=== PATIENT | female | born 1970 | race Caucasian/White ===

== ENCOUNTER → 2019-09-08 15:41 | Outpatient (BNVA) | payer OTHER, SELFPAY | PROVIDERS: Family Provider Nurse Practitioner Family; PCP Nurse Practitioner Family; Visit Provider Nurse Practitioner Family | DX: N30.01 Acute cystitis with hematuria (principal); R35.0 Frequency of micturition | CPT/HCPCS: 80053; 81000 ==

== ENCOUNTER → 2019-09-20 15:10 | Outpatient (BNVA) | payer OTHER, SELFPAY | PROVIDERS: Family Provider Nurse Practitioner Family; PCP Nurse Practitioner Family; Visit Provider Nurse Practitioner Family | DX: L03.211 Cellulitis of face (principal); L03.90 Cellulitis, unspecified | CPT/HCPCS: 84450; 87070 ==

== ENCOUNTER → 2020-03-01 08:18 | Outpatient (BNVA) | payer OTHER, SELFPAY | PROVIDERS: Family Provider Nurse Practitioner Family; PCP Nurse Practitioner Family; Visit Provider Nurse Practitioner Family | DX: R30.0 Dysuria (principal); R39.9 Unspecified symptoms and signs involving the genitourinary system | CPT/HCPCS: 81000 ==

== ENCOUNTER → 2020-08-15 16:46 | Outpatient (BNVA) | payer OTHER, SELFPAY | PROVIDERS: Family Provider Nurse Practitioner Family; PCP Nurse Practitioner Family; Visit Provider Nurse Practitioner Family | DX: R39.9 Unspecified symptoms and signs involving the genitourinary system (principal) | CPT/HCPCS: 81000; 87086 ==

== ENCOUNTER → 2021-02-27 13:23 | Outpatient (BNVA) | payer OTHER, SELFPAY | PROVIDERS: Family Provider Nurse Practitioner Family; PCP Nurse Practitioner Family; Visit Provider Nurse Practitioner Family | DX: R39.9 Unspecified symptoms and signs involving the genitourinary system (principal) | CPT/HCPCS: 81000 ==

== ENCOUNTER → 2021-06-24 08:03 | Outpatient (BNVA) | payer OTHER, SELFPAY | PROVIDERS: Family Provider Nurse Practitioner Family; PCP Nurse Practitioner Family; Visit Provider Nurse Practitioner Family | DX: R53.83 Other fatigue (principal); I10 Essential (primary) hypertension | CPT/HCPCS: 80053; 80061; 84443 ==

== ENCOUNTER 2021-08-23 06:44 | Outpatient (CLI) | payer OTHER, SELFPAY ==
--- NOTE | 2021-08-23 07:00 | US_ITS ---
WS: [id number] RENAL ULTRASOUND HISTORY: I10 - Essential (primary) hypertension COMPARISON: None available. TECHNIQUE: 2-D and color Doppler imaging of the kidney submitted. Right kidney: 12.5 cm x 6.0 cm x 5.9 cm. Moderate renal dilatation of proximal ureteral dilatation. There is calyceal dilatation and very mild diffuse cortical thinning. No mass. Left kidney: 10.0 cm x 5.4 cm x 4.7 cm. Normal echogenicity with no hydronephrosis or mass. Aorta: Normal. Urinary Bladder: Nondistended urinary bladder. There is wall thickening which could be due to underdi stention. US/US renal BI* [id number] IMPRESSION: 1. Moderate RIGHT hydronephrosis and proximal hydroureter. Site of the obstruc tion is not evident by ultrasound. Distal obstructing ureteral stone, stricture or neoplasm evaluation is recommended. If patient is having pain recommend pranay al stone CT protocol. If this is painless follow-up CT urogram is recommended. 2. Normal LEFT kidney.
== END 2021-08-23 06:45 | disposition home or self-care (01) ==
LOC: RAD 06:45
PROVIDERS: PCP Nurse Practitioner Family; Visit Provider Nurse Practitioner Family
DX: I10 Essential (primary) hypertension (principal); N13.2 Hydronephrosis with renal and ureteral calculous obstruction
CPT/HCPCS: 76770

== ENCOUNTER 2021-09-19 06:00 | Outpatient (CLI) | payer OTHER, SELFPAY | END 2021-09-19 06:01 | disposition home or self-care (01) | LOC: LAB 02-03 19:11 | PROVIDERS: PCP Nurse Practitioner Family; Visit Provider Nurse Practitioner Family | DX: N13.30 Unspecified hydronephrosis (principal); N39.0 Urinary tract infection, site not specified | CPT/HCPCS: 81003; 87086 ==

== ENCOUNTER 2021-09-19 06:51 | Outpatient (CLI) | payer OTHER, SELFPAY ==
--- NOTE | 2021-09-19 07:00 | XR_ITS ---
WS: [id number] Exam: XR KUB [id number] Date/Time of Exam: 09/19/2021 6:58 AM Reason For Exam: HYDRONEPHROSIS Comparison 01/17/2008. No bowel obstruction or free air. No calcifications seen in the region of the kidneys. Nonspecific bi lateral pelvic calcifications. Bony structures are intact. No sign of organ enlargement. XR/XR KUB [id number] IMPRESSION: 1. No acute abdominal finding.
--- NOTE | 2021-09-19 16:00 | CT_ITS ---
WS: [id number] CT ABDOMEN AND PELVIS NONCONTRAST HISTORY: HYDRONEPHROSIS TECHNIQUE: Imaging performed through the abdomen and pelvis. Coronal and sagittal reformats are submi tted. All CT scans at [facility] use at least one of these dose optimization techniques: auto mated exposure control; mA and/or kV adjustment per patient size (includes targeted exams where dose is matched to clinical indication); or iterative reconstruction. DLP: 1079.25 mGy.cm COMPARISON: None available. Lower thorax: Lung bases and diaphragms are not included. Liver: Mildly heterogeneous enlarged liver incompletely imaged. No bile duct dilatation. No mass is e vident. Gallbladder: Contracted, probably due to a nonfasting state. Pancreas: Normal size and attenuation. Normal pancreatic duct. No pancreatitis or mass. Spleen: Incompletely included. Adrenal glands: Normal. No mass. Right kidney: Mildly enlarged edematous kidney. Moderate hydronephrosis and hydroureter. Hydroureter is secondary to a 5 mm calcification at the UV junction. No additional calcifications. Left kidney: Normal size kidney with no mass or hydronephrosis. Aorta: Atherosclerosis aorta. No aneurysm. No free fluid, intraperitoneal air or significant lymphadenopathy. GI tract: Normal appendix. No small bowel obstruction. Numerous diverticula in the sigmoid colon. No evidence for acute diverticulitis. Abdominal wall: Negative. No hernia. Pelvis: Well-distended urinary bladder. Enlarged uterus with calcifications consistent with a fibroid uterus. Osseous structures: Unremarkable. CT/CT abdomen pelvis wo con [id number] IMPRESSION: 1. Moderate RIGHT hydroureteronephrosis secondary to a 5 mm UP junction calcif ication. 2. Comment mildly contracted gallbladder due to nonfasting state. 3. Enlarged lobulated uterus with calcifications. Consistent with a fibroid ut erus. 4. Normal appendix.
== END 2021-09-19 06:52 | disposition home or self-care (01) ==
PROVIDERS: PCP Nurse Practitioner Family; Visit Provider Urology
DX: N13.30 Unspecified hydronephrosis (principal); N85.2 Hypertrophy of uterus
CPT/HCPCS: 74018; 74176

== ENCOUNTER 2021-10-03 11:33 | Outpatient (CLI) | payer OTHER, SELFPAY ==
--- NOTE | 2021-10-03 12:00 | XRR_ITS ---
PROCEDURE INFORMATION: Exam: XR Abdomen Exam date and time: 10/03/2021 11:51 AM Age: 50 years old Clinical indication: Condition or disease; Kidney or ureter condition; Other: Urolithiasis; Prior surgery; Surgery type: Tubal; Additional info: Urolithiasis, oze @ [facility] on 10/03/21 @ 12. Appt to follow TECHNIQUE: Imaging protocol: XR of the abdomen. Views: Frontal supine view of the abdomen. 1 View. COMPARISON: CT abdomen pelvis con [id number] 09/19/2021 2:36 PM FINDINGS: Gastrointestinal tract: Normal. No bowel dilation. Bones/joints: Unremarkable. XR/XR KUB [id number] IMPRESSION: No acute findings.
== END 2021-10-03 11:34 | disposition home or self-care (01) ==
LOC: RAD 11:34
PROVIDERS: PCP Nurse Practitioner Family; Visit Provider Urology
DX: N20.9 Urinary calculus, unspecified (principal)
CPT/HCPCS: 74018; 81003

== ENCOUNTER 2021-10-09 07:53 | Day surgery (SDC) | payer OTHER, SELFPAY ==
[2021-10-08 10:19] VITALS: BMI 28.8
[2021-10-09] VITALS (9 sets, daily range): BP systolic 115–161; BP diastolic 76–100; PULSE 57–76; RESP 14–18; TEMP 36.1–37; O2SAT 96–99
--- NOTE | 2021-10-09 | SCC_ITS ---
Procedure done: 1. Cystoscopy, RIGHT, retrograde 2. RIGHT ureteroscopy, ureteral biopsy, stent 63.7 seconds of fluoroscopic guidance, for a cumulative dose of 15.95 mGy, was provided to Dr. Luna by the radiology department. C-arm images of the abdomen were saved for the patient's permanent record. [facility]
--- NOTE | 2021-10-09 06:36 | P.HPUD_ITS ---
Surgery/Procedure H&P Update DATE OF PROCEDURE: October 09, 2021 DATE H&P PERFORMED: 10/03/21 H&P UPDATE INFORMATION: I have reviewed H&P completed within last 30 days, I have examined patient prior to procedure, No changes to prior documentation and H&P is in [facility] [place] indicated CHANGES TO PREVIOUS DOCUMENTATION: Has not passed the stone. Still having symptoms. Not as severe thankfully. Proceed as scheduled PLANNED PROCEDURE: Operation Date: 10/09/21 09:30 Proposed Procedures p CYSTOSCOPY RIGHT RETROGRADE URETEROSCOPY LASER STENT 71197 MODIFIER 26 65734,N13.30,N20.9(Not Applicable) - Rodrick Luna MD s Retrograde Pyelogram(Right) - MD lamonte Couch Ureteroscopy(Not Applicable) - Rodrick Luna MD s Laser Lithotripsy(Right) - MD lamonte Couch Ureteral Stent Placement(Right) - Rodrick Luna MD
--- NOTE | 2021-10-09 08:03 | SC_ITS ---
WS: [id number] C-arm fluoroscopy for right ureteral stent placement Clinical Data: Right ureteral calculus Comparison: None. Findings: Dr. Luna placed a right ureteral stent. SC/C-arm FL for Urology Impression: Right ureteral stent.
[2021-10-09] MEDS: sodium chloride 0.9% 1,000 ML 30 ML IV (08:48)
--- NOTE | 2021-10-09 08:53 | ANES.PREANE2 ---
Pre-Anesthetic Assessment Height/Weight: Height 1.63 m Weight 76.204 kg Temp Pulse Resp BP Pulse Ox 98.6 F 73 16 161/100 99 10/09/21 08:09 10/09/21 08:09 10/09/21 08:09 10/09/21 08:09 10/09/21 08:09 Preop Diagnosis: Refractory right distal ureteral stone Operation Date: 10/09/21 09:30 Proposed Procedures p CYSTOSCOPY RIGHT RETROGRADE URETEROSCOPY LASER STENT 04108 MODIFIER 26 84836,N13.30,N20.9(Not Applicable) - Rodrick Luna MD s Retrograde Pyelogram(Right) - MD lamonte Couch Ureteroscopy(Not Applicable) - Rodrick Luna MD s Laser Lithotripsy(Right) - MD lamonte Couch Ureteral Stent Placement(Right) - Rodrick Luna MD Familial anesthetic complications: None Was Beta Tania taken within 24 hours: Yes Was Clonidine taken within 24 hours: N/A Last intake: Intake Last Liquid Date 10/08/21 Last Liquid Time 19:00 Last Solid Date 10/08/21 Last Solid Time 19:00 Social No alcohol and No tobacco Exam alert, oriented x 3, clear to auscultation bilaterally and regular rate & rhythm Airway Submandibular: within normal limits Cervical ROM: within normal limits Mallampati: Class II Dentition: full CV/HEM Hypertension Anesthetic Plan ASA status: 2 Anesthesia: General Medications/Allergies Home Medications Medication Instructions Recorded Confirmed Last Taken Type multivitamin 1 tab PO DAILY 10/17/20 10/09/21 10/07/21 History metoprolol succinate 25 mg 25 mg PO DAILY #30 tab 08/30/21 10/09/21 10/08/21 20:00 Rx tablet,extended release 24 hr alfuzosin 10 mg tablet,extended 10 mg PO DAILY #30 tab 09/19/21 10/09/21 10/07/21 Rx release 24 hr hydrocodone 5 mg-acetaminophen 325 1 tab PO Q6H PRN 3 Days #12 tab 09/19/21 10/08/21 Unknown Rx mg tablet ondansetron HCl 4 mg tablet 4 mg PO Q6H PRN #12 tab 09/19/21 10/09/21 Unknown Rx Allergies Allergy/AdvReac Type Severity Reaction Status Date / Time levofloxacin [From Levaquin] Allergy Unknown Verified 10/08/21 10:17 Sulfa (Sulfonamide Allergy Unknown Verified 10/08/21 10:17 Antibiotics) Current Medications Generic Name Dose Route Start Last Admin Trade Name Denzel PRN Reason Stop Dose Admin Sodium Chloride 1,000 mls @ 30 mls/hr 10/09/21 08:15 10/09/21 08:48 Sodium Chloride 0.9% IV 10/10/21 08:14 30 mls/hr .Q24H JEN Administration PFSH Anesthesia Medical History Hx of recurrent urinary tract infection Recurrent UTI Urolithiasis Family History Mother Healthy adult Father , AT 68 Kidney failure Social History Smoking and tobacco status: never smoked Alcohol intake: never Marital status: Current occupational status: employed History of recent travel: No Data Anesthesia Cardiac Studies: No Data to Display
--- NOTE | 2021-10-09 09:42 | P.OP_ITS ---
Operative Report Date of procedure: October 09, 2021 Pre-op diagnosis: Refractory right distal ureteral stone Post-op diagnosis: Refractory right distal ureteral stone Right ureteral soft tissue mass Likely impacted ureteral stone. Procedure done: 1. Cystoscopy, RIGHT, retrograde 2. RIGHT ureteroscopy, ureteral biopsy, stent Specimens removed/disposition: ureteral biopsies Pathology: ureteral biopsies Surgeon: Jeremy Anesthesia: General Urine output: Not measured Complications: None Findings: Stone in the expected position but not accessible. Impacted and obscured by soft tissue mass felt most likely to inflammatory reaction. Couldn't rule out fibroepithelial polyp. Biopsy obtained. Could NOT achieve adequate access and visualization of the stone, safely so a stent (4.5 largest I could advance) was placed for passive dilation and obstruction relief. Plans discussed for relook in 2-3 weeks with hopes of much improved environment and safe access. Brief History: Silvina is a delightful 50-year-old white female recently diagnosed with a right distal ureteral stone with colicky type symptoms. Failed to pass the stone in a reasonable amount of time and ultimately due to persistence of symptoms she elected to proceed with surgical intervention. Her CT scan demonstrated moderate hydroureteronephrosis. Procedure: After routine preoperative evaluation examination and obtaining of informed consent she was taken to the operating suite on 10/09/2021 where general anesthesia was administered without difficulty after appropriate timeout was performed, SCDs confirmed to be functioning, preoperative antibiotics administered, beta-livia protocol confirmed. Prepped and draped in usual sterile fashion in dorsolithotomy position paying careful attention to avoiding pressure points. 21 [place] cystoscope with 30 degree lens was introduced into urethra meatus and advanced into the bladder without difficulty. The bladder was systematically examined. No stones were seen. The stone was easily identified on the head boys tennis coach image. An 8 [place] cone-tip catheter was intubated into the right ureteral orifice for right retrograde ureteropyelogram . Contrast could not be easily advanced to the level of the stone it appeared that there was a filling defect below the stone. Contrast did NOT flow proximal to the stone. Attempted passing a flexible tip guidewire was initially unsuccessful. A 7 [place] offset semirigid ureteroscope was advanced up the right ureter and indeed there was a soft tissue density that looked similar to a fibroepithelial polyp but could have been just an intense inflammatory response to the stone sitting in that spot for a long time. Thankfully a guidewire could be manipulated beyond the area with direct visualization of that area with the ureteroscope and it curled in the area of the upper pole calyx. I could not advance the scope over the wire. I could not clearly see the stone even with slight pressure placed on the stone with the tip of the scope abutting near it as visualized on fluoroscopy. The scope was removed and the wire was secured to the drapes as a safety wire. The scope was then repassed and ureteroscopic biopsy forceps were utilized to sample the soft tissue density extending distally in the ureter from the area of the stone. It extended probably about half a centimeter maybe longer. Small samples were sent for pathologic evaluation. A 6 [place] mini scope was then attempted to be passed to the stone but it was as well unsuccessful. Reattempt over the guidewire was again unsuccessful. At this point it was decided to place a stent for passive dilation and not take any chances by pushing harder. A 6 [place] open-ended ureteral catheter was then attempted to be passed over the guidewire but was unsuccessful. The cystoscope was then backloaded over the guidewire and a 4.5 [place] 28 cm double-pigtail stent was advanced over the guidewire through the cystoscope bypassing the area of narrowing. It was advanced up into the kidney without difficulty and the stent was confirmed to be draining well. The wire was removed and the procedure was completed. The exact etiology was unclear. I do think that the most likely cause of this is an intense inflammatory response to the stone having been in that position for a significant amount of time and if that is the case passive dilation with the stent possibly a slightly larger stent (if not successful obtaining direct access with a scope at reattempt) should allow the ability to visualize the stone. I do expect it is impacted. Access was not good enough this case due to the intense inflammation to attempt at laser of the mucosal membrane likely to be encompassing the stone. I discussed these findings in detail with the patient's and after anesthesia with the patient. I luis pictures and gave detailed explanations as to the difficulty of this and what we would do in the near future to try to remedy this tight area with passive dilation and hopefully which would allow muc h easier, safe access of the scope to the stone in order to perform definitive treatment. Did discuss the potential for antegrade stent placement or access if retrograde approach remains unobtainable. PLANS: 1. Anticipate discharge from outpatient surgery 2. Follow-up in 2 weeks for additional planning as noted above.
--- NOTE | 2021-10-09 11:49 | SUR.PHASEII ---
pain medication offered, patient declined.
--- NOTE | 2021-10-09 11:59 | SUR.PHASEII ---
DOCTOR BERGER IN TO TALK WITH PATIENT AND FAMILY.
[2021-10-09] MEDS: ondansetron 2 mg/ML SDV 2 mL 4 MG IVP (12:38)
[2021-10-09] MEDS: HYDROcodone-acetaminophen 5-325 mg Tablet 1 TAB PO (12:38)
--- NOTE | 2021-10-09 14:16 | ANE.PACU2 ---
Inpatient post-anesthesia follow up: Airway intact: Yes Vital signs: Temperature 98.0 F Pulse Rate 76 Respiratory Rate 14 Blood Pressure 115/76 Pulse Oximetry 97 Oxygen Delivery Me thod Room Air Oxygen Flow Rate 6 Fraction of Inspir ed Oxygen Hydration adequate: Yes Nausea and vomiting: No Pain level: 4 Mental status: Baseline
== END 2021-10-09 13:05 | disposition home or self-care (01) ==
PROVIDERS: PCP Nurse Practitioner Family; Visit Provider Urology
PROC: 0TJB8ZZ Inspection of Bladder, Via Natural or Artificial Opening Endoscopic (ICD-10-PCS; CPT 52000; principal; 2021-10-09 09:10)
PROC: (CPT 74420; 2021-10-09 09:10)
PROC: 0TJ98ZZ Inspection of Ureter, Via Natural or Artificial Opening Endoscopic (ICD-10-PCS; CPT 52351; 2021-10-09 09:10)
PROC: (CPT 50605; 2021-10-09 09:10)
DX: N20.1 Calculus of ureter (principal); I10 Essential (primary) hypertension
CPT/HCPCS: 52332; 52354; 76000; 88305; C2625; J1100; J2250; J2405; J2704; J3010; J7030

== ENCOUNTER 2021-10-25 09:17 | Outpatient (CLI) | payer OTHER, SELFPAY ==
--- NOTE | 2021-10-25 09:24 | MM_ITS ---
WS: [id number] BILATERAL SCREENING DIGITAL BREAST TOMOSYNTHESIS MAMMOGRAM WITH CAD HISTORY: SCREENING COMPARISON: None available. Bilateral CC and MLO views with tomosynthesis and synthetic mammography submitted. Computer aided det ection analyzed. Breast composition: There are scattered areas of fibroglandular density. No suspicious masses, microc alcifications or architectural distortion. Benign calcifications and a prior biopsy clip in the RIGHT breast. MM/[place] [id number] IMPRESSION: BI-RADS: 2-Benign FOLLOW UP: 1 Year Follow-up
== END 2021-10-25 09:18 | disposition home or self-care (01) ==
LOC: RAD 09:18
PROVIDERS: PCP Nurse Practitioner Family; Visit Provider Nurse Practitioner Family
DX: Z12.31 Encounter for screening mammogram for malignant neoplasm of breast (principal)
CPT/HCPCS: 77063; 77067; 81003

== ENCOUNTER 2021-10-30 07:48 | Day surgery (SDC) | payer OTHER, SELFPAY ==
[2021-10-29 15:58] VITALS: BMI 28.8
[2021-10-30] VITALS (9 sets, daily range): BP systolic 121–154; BP diastolic 69–103; PULSE 67–88; RESP 14–20; TEMP 36.2–36.8; O2SAT 92–99
--- NOTE | 2021-10-30 | SCC_ITS ---
Procedure done: 1. Cystoscopy, right retrograde ureteropyelogram 2. Right ureteroscopy, laser lithotripsy, right ureteral stent exchange 84.7 seconds of fluoroscopic guidance, for a cumulative dose of 22.83 mGy, was provided to Dr. Luna by the radiology department. C-arm images of the abdomen were saved for the patient's permanent record. [facility]
--- NOTE | 2021-10-30 06:02 | P.HPUD_ITS ---
Surgery/Procedure H&P Update DATE OF PROCEDURE: October 30, 2021 DATE H&P PERFORMED: 10/25/21 H&P UPDATE INFORMATION: I have reviewed H&P completed within last 30 days, I have examined patient prior to procedure, No changes to prior documentation and H&P is in [facility] [place] on date indicated CHANGES TO PREVIOUS DOCUMENTATION: Good review of initial findings and implications for today. Goal is to safely access stone after period of passive dilation with stent. Unfortunately 4.5 fr stent largest I could get up at 1st visit. If still not dilated enough to safely access with scope today, we agreed that replacement with largest stent able to be passed would be the next best step and provide better chance of access at reattemp. Also reviewed antegrade approaches, ESWL, open surgery as alternatives PREOP DIAGNOSIS: Refractory right distal ureteral stone PLANNED PROCEDURE: Operation Date: 10/30/21 09:25 Proposed Procedures p CYSTOSCOPY, RIGHT, URETEROSCOPY, LASER, STENT 67785,96997,N20.1(Not Applicable) - Rodrick Luna MD s Ureteroscopy(Right) - Rodrick Luna MD s Laser Lithotripsy(Right) - Rodrick Luna MD s Ureteral Stent Placement(Right) - Rodrick Luna MD
--- NOTE | 2021-10-30 07:54 | SC_ITS ---
WS: [id number] C-arm fluoroscopy for right ureteral stent placement, 10/30/2021 Clinical Data: Impacted right ureteral stone Comparison: None. Findings: Dr. Luna inserted a right ureteral stent and the proximal portion is curled in the region of the right kidney. SC/C-arm FL for Urology Impression: Right ureteral stent.
[2021-10-30] MEDS: sodium chloride 0.9% 1,000 ML 30 ML IV (08:20)
--- NOTE | 2021-10-30 09:27 | PM.OP ---
Operative Report Date of procedure: October 30, 2021 Pre-op diagnosis: Impacted right distal ureteral stone Post-op diagnosis: Impacted right distal ureteral stone Procedure done: 1. Cystoscopy, right retrograde ureteropyelogram 2. Right ureteroscopy, laser lithotripsy, right ureteral stent exchange Implants: 7 [place] by 26 cm double-pigtail stent, no string Specimens removed/disposition: Stone fragments Pathology: Stone fragment Surgeon: Jeremy Anesthesia: General Urine output: not measured Complications: None Findings: severely impacted stone completely walled off from the true lumen. It appeared that most of the stone had been removed. Could not inspect as clearly as I would like to given the degree of inflammatory changes. Will require a relook in 4 to 6 weeks in hopes of finding adequate healing in order to remove the stent. Brief History: Silvina is a very pleasant 51-year-old white female recently diagnosed with a right ureteral calculus with failed conservative management. Ultimately elected to proceed with endoscopic treatment of the stone and on 10/09/2021 and attempted ureteroscopy was made but unsuccessful and actually accessing the stone due to impaction and a soft tissue inflammatory process extending well below the stone. It was actually difficult to get a stent but a 4.5 [place] ureteral stent was placed and the goal was to treat the obstruction but also create passive dilation. Unfortunately a larger stent which would have created or desired passive dilation could not be manipulated beyond the impacted stone so 4.5 was selected. She is back now after few weeks of the stent being in place for passive dilation for second attempt at accessing the stone. I reviewed the difficult nature of the stone with the patient and her at length. Focus has been on safe approach first. That made sense to both of them. Procedure: After routine preoperative evaluation examination and obtaining of informed consent she was taken to the operating suite on 10/30/2021 where general anesthesia was administered without difficulty after appropriate timeout was performed, SCDs confirmed to be functioning, preoperative antibiotics administered, beta-livia protocol confirmed. Prepped and draped in usual sterile fashion dorsolithotomy position pain careful attention to avoiding pressure points. 21 [place] cystoscope with 30 degree lens was introduced into the urethra meatus and advanced into the bladder under videoscopy. The bladder was systematically examined without gross abnormality identified. Stent showed no significant encrustation. It was grasped on the very distal aspect with a grasping forceps and withdrawn a very short distance through the urethral meatus and a flexible tip guidewire was easily advanced up the stent into the upper pole calyx and secured to the drapes as a safety wire. The stent was removed. The offset semirigid ureteroscope was advanced up the right ureter next to the stent to the area of impaction. There is still quite a bit of inflammatory tissue distal to the impaction site. A flexible tip guidewire was advanced through the ureteroscope and gently fed into the ureter and it easily advanced beyond the impaction site up into the kidney. This wire was also used as a safety wire. The ureteroscope was then passed again and the area carefully inspected utilizing both fluoroscopic guidance as well as endoscopic visualization. There appeared to be a membranous/mucosal sheath surrounding what appeared to be pale yellow structure consistent with a stone seen fluoroscopically. A 200 ?m thulium superpulse laser fiber was utilized to incise the mucosal covering exposing the stone. It was incised enough to be able to see most of the stone. The laser fiber was then utilized to fragment the stone into multiple small pieces that were flushed free as well as secured in grasping forceps and withdrawn. I could not clearly or easily advance the ureteroscope beyond this impaction area and it was still quite inflamed. At some point I could no longer see any stone fragments on fluoroscopy. Multiple attempts of trying to pass the scope over the guidewire were still unsuccessful and at that point further attempts at passing the scope were abandoned. An open-ended ureteral catheter was advanced over the second safety wire and the wire was removed after the catheter was beyond the area of impaction. Contrast was injected showing fairly significantly dilated proximal ureter and collecting system and there was no evidence of extravasation distally. It was felt at this point that the gain from further pursuit of trying to pass the scope was outweighed by risk of trying to force it and at that point it was decided to place a stent over the second wire. A 7 [place] by 26 cm double-pigtail stent was advanced over the guidewire through the cystoscope that had been backloaded over the guidewire into appropriate position as confirmed via fluoroscopy and cystoscopy. Wire was removed. Stent was confirmed to be draining well. Multiple fragments that had been dropped into the bladder and flushed from the ureter were then flushed into the drape drainage screen and sent for pathologic evaluation. The procedure was completed. She tolerated procedure well without complications and was awakened in the operating room and returned to the recovery room in stable condition. PLANS: 1. Anticipate discharge from outpatient surgery 2. Plan on leaving the stent in at least 4 - 6 weeks before we looking to assess healing of the severely inflamed mucosa at the impaction site. 3. I did review in detail the findings with the
--- NOTE | 2021-10-30 09:28 | ANES.PREANE2 ---
Pre-Anesthetic Assessment Height/Weight: Height 1.63 m Weight 76.204 kg Temp Pulse Resp BP Pulse Ox 97.2 F L 73 18 121/103 99 10/30/21 08:07 10/30/21 08:07 10/30/21 08:07 10/30/21 08:07 10/30/21 08:07 Preop Diagnosis: Impacted right distal ureteral stone Operation Date: 10/30/21 09:25 Proposed Procedures p CYSTOSCOPY, RIGHT, URETEROSCOPY, LASER, STENT 43893,05519,N20.1(Not Applicable) - Rodrick Luna MD s Ureteroscopy(Right) - Rodrick Luna MD s Laser Lithotripsy(Right) - Rodrick Luna MD s Ureteral Stent Placement(Right) - Rodrick Luna MD Familial anesthetic complications: None Was Beta Tania taken within 24 hours: Yes Was Clonidine taken within 24 hours: N/A Last intake: Intake Last Liquid Date 10/29/21 Last Liquid Time 21:00 Last Solid Date 10/29/21 Last Solid Time 19:00 Social No alcohol and No tobacco Exam alert, oriented x 3, clear to auscultation bilaterally and regular rate & rhythm Airway Submandibular: within normal limits Cervical ROM: within normal limits Mallampati: Class II Dentition: full CV/HEM Hypertension Kidney stones Anesthetic Plan ASA status: 2 Anesthesia: General Medications/Allergies Home Medications Medication Instructions Recorded Confirmed Last Taken Type multivitamin 1 tab PO DAILY 10/17/20 10/30/21 10/27/21 History hydrocodone 5 mg-acetaminophen 325 1 tab PO Q6H PRN 3 Days #12 tab 09/19/21 10/30/21 10/23/21 Rx mg tablet ondansetron HCl 4 mg tablet 4 mg PO Q6H PRN #12 tab 09/19/21 10/30/21 Unknown Rx oxycodone-acetaminophen 5 mg-325 1 tab PO Q8H PRN 2 Days #6 tab 10/25/21 10/29/21 Unknown Rx mg tablet (Percocet) metoprolol succinate 25 mg See Rx Instructions .ROUTE 10/29/21 10/30/21 10/29/21 Rx tablet,extended release 24 hr .COMPLEX #30 tab Allergies Allergy/AdvReac Type Severity Reaction Status Date / Time levofloxacin [From Levaquin] Allergy Unknown Verified 10/30/21 08:03 Sulfa (Sulfonamide Allergy Unknown Verified 10/30/21 08:03 Antibiotics) Current Medications Generic Name Dose Route Start Last Admin Trade Name Denzel PRN Reason Stop Dose Admin Sodium Chloride 1,000 mls @ 30 mls/hr 10/30/21 08:00 10/30/21 08:20 Sodium Chloride 0.9% IV 10/31/21 07:59 30 mls/hr .Q24H JEN Administration PFSH Anesthesia Medical History Hx of recurrent urinary tract infection Recurrent UTI Urolithiasis Family History Mother Healthy adult Father , AT 68 Kidney failure Social History Smoking and tobacco status: never smoked Alcohol intake: never Marital status: Current occupational status: employed History of recent travel: No Data Anesthesia Cardiac Studies: No Data to Display
[2021-10-30] MEDS: ceFAZolin 2,000 MG in sodium chloride 0.9% (plus) 50 ML 100 MG IV (09:33)
[2021-10-30] MEDS: HYDROcodone-acetaminophen 5-325 mg Tablet 1 TAB PO (11:53)
--- NOTE | 2021-10-30 16:32 | ANE.PACU2 ---
Inpatient post-anesthesia follow up: Airway intact: Yes Vital signs: Temperature 97.4 F Pulse Rate 74 Respiratory Rate 16 Blood Pressure 126/82 Pulse Oximetry 99 Oxygen Delivery Me thod Room Air Oxygen Flow Rate 5 Fraction of Inspir ed Oxygen Hydration adequate: Yes Nausea and vomiting: No Pain level: 3 Mental status: Baseline
[2021-11-02 21:16] LABS: Stone Source RIGHT URETER
== END 2021-10-30 12:28 | disposition home or self-care (01) ==
PROVIDERS: PCP Nurse Practitioner Family; Visit Provider Urology
PROC: 0TJB8ZZ Inspection of Bladder, Via Natural or Artificial Opening Endoscopic (ICD-10-PCS; CPT 52000; principal; 2021-10-30 09:15)
PROC: 0TJ98ZZ Inspection of Ureter, Via Natural or Artificial Opening Endoscopic (ICD-10-PCS; CPT 52351; 2021-10-30 09:15)
PROC: (CPT 52356; 2021-10-30 09:15)
PROC: (CPT 50605; 2021-10-30 09:15)
DX: N20.1 Calculus of ureter (principal); I10 Essential (primary) hypertension
CPT/HCPCS: 52356; 76000; 82365; 88300; C2625; J1100; J2250; J2405; J2704; J2710; J3010; J3490; J7030

== ENCOUNTER 2021-11-21 11:21 | Outpatient (CLI) | payer OTHER, SELFPAY | END 2021-11-21 11:22 | disposition home or self-care (01) | LOC: RAD 11:24 | PROVIDERS: PCP Nurse Practitioner Family; Visit Provider Nurse Practitioner Family | DX: N39.0 Urinary tract infection, site not specified (principal); Z96.0 Presence of urogenital implants | CPT/HCPCS: 74018; 81003; 87086 ==

== ENCOUNTER 2021-11-29 07:07 | Outpatient (CLI) | payer OTHER, SELFPAY ==
--- NOTE | 2021-11-29 07:00 | XR_ITS ---
WS: [id number] KUB, AP view, 11/29/2021 Clinical Data: UROLITHIASIS Comparison: KUB, 11/21/2021. Findings: No abnormal intraabdominal masses or calcifications are seen. There is no dilatated small bowel or ev idence of obstruction. The right ureteral catheter remains in good position. There is moderate fecal material throughout the colon. XR/XR KUB [id number] Impression: Negative KUB.
== END 2021-11-29 07:08 | disposition home or self-care (01) ==
PROVIDERS: PCP Nurse Practitioner Family; Visit Provider Urology
DX: N20.9 Urinary calculus, unspecified (principal)
CPT/HCPCS: 74018

== ENCOUNTER 2021-12-04 06:08 | Day surgery (SDC) | payer OTHER, SELFPAY ==
[2021-12-03 12:54] VITALS: BMI 28.8
[2021-12-04] VITALS (8 sets, daily range): BP systolic 99–149; BP diastolic 71–97; PULSE 68–83; RESP 10–20; TEMP 36.3–36.7; O2SAT 94–100
--- NOTE | 2021-12-04 | SCC_ITS ---
Procedure done: 1. Cystoscopy, remove right ureteral stent 2. Right retrograde ureteropyelogram 3. Right ureteroscopy, laser lithotripsy, stent placement 26.0 seconds of fluoroscopic guidance, for a cumulative dose of 6.26 mGy, was provided to Dr. Luna by the radiology department. C-arm images of the pelvis were saved for the patient's permanent record. [facility]
--- NOTE | 2021-12-04 06:24 | SC_ITS ---
WS: [id number] INTRAOPERATIVE TECHNIQUE: 5 Spot fluoroscopic images for intraoperative purposes. FLUOROSCOPY TIME: 26.0 seconds CLINICAL INFORMATION: Right ureteroscopy, retrograde, stent COMPARISON: None. FINDINGS: RIGHT double-J ureteral stent exchange and replacement. SC/C-arm FL for Urology IMPRESSION: Images obtained for intraoperative purposes.
[2021-12-04] MEDS: sodium chloride 0.9% 1,000 ML 30 ML IV (06:39)
[2021-12-04] MEDS: ceFAZolin 2,000 MG in sodium chloride 0.9% (plus) 50 ML 100 MG IV (06:44)
--- NOTE | 2021-12-04 06:56 | W.PM.OPSUD ---
Surgery/Procedure H&P Update DATE OF PROCEDURE: December 04, 2021 DATE H&P PERFORMED: 11/29/21 H&P UPDATE INFORMATION: I have reviewed H&P completed within last 30 days, I have examined patient prior to procedure, No changes to prior documentation and H&P is in [facility] [place] on date indicated PREOP DIAGNOSIS: Right hydronephrosis, previously impacted right ureteral calculus, stent PLANNED PROCEDURE: Operation Date: 12/04/21 07:50 Proposed Procedures p Cystoscopy 87219/ 14115/ modifier 26/N13.30/N20.11(Right) - Rodrick Luna MD s Ureteroscopy(Right) - Rodrick Luna MD s Retrograde Pyelogram(Right) - Rodrick Luna MD s Ureteral Stent Exchange(Right) - Rodrick Luna MD
--- NOTE | 2021-12-04 07:15 | ANES.PREANE2 ---
Pre-Anesthetic Assessment Height/Weight: Height 1.63 m Weight 76.204 kg Temp Pulse Resp BP Pulse Ox O2 Del Method 97.3 F L 78 18 149/97 98 12/04/21 06:35 12/04/21 06:35 12/04/21 06:35 12/04/21 06:35 12/04/21 06:35 12/04/21 06:35 Preop Diagnosis: Right hydronephrosis, previously impacted right ureteral calculus, stent Operation Date: 12/04/21 07:50 Proposed Procedures p Cystoscopy 21711/ 97061/ modifier 26/N13.30/N20.11(Right) - Rodrick Luna MD s Ureteroscopy(Right) - Rodrick Luna MD s Retrograde Pyelogram(Right) - Rodrick Luna MD s Ureteral Stent Exchange(Right) - Rodrick Luna MD Familial anesthetic complications: None Was Beta Tania taken within 24 hours: Yes Was Clonidine taken within 24 hours: N/A Last intake: Intake Last Liquid Date 12/03/21 Last Liquid Time 19:30 Last Solid Date 12/03/21 Last Solid Time 18:30 Social No alcohol and No tobacco Exam alert, oriented x 3, clear to auscultation bilaterally and regular rate & rhythm Airway Mallampati: Class II Dentition: full Pulmonary None reported CV/HEM Hypertension None reported Hepatic None reported GI None reported Metabolic None reported Musc/skel None reported Neuropsych None reported Anesthetic Plan ASA status: 2 Anesthesia: General Risk of > 500 ml blood loss (7ml/kg in children): No Medications/Allergies Home Medications Medication Instructions Recorded Confirmed Last Taken Type multivitamin 1 tab PO DAILY 10/17/20 12/04/21 10/27/21 History hydrocodone 5 mg-acetaminophen 325 1 tab PO Q6H PRN pain 3 days #12 09/19/21 12/04/21 10/23/21 Rx mg tablet tabs ondansetron HCl 4 mg tablet 4 mg PO Q6H PRN nausea and 09/19/21 12/03/21 Unknown Rx vomiting #12 tabs oxycodone-acetaminophen 5 mg-325 1 tab PO Q8H PRN painful procedure 10/25/21 12/04/21 Unknown Rx mg tablet (Percocet) 2 days #6 tabs metoprolol succinate 25 mg See Rx Instructions .Route 10/29/21 12/04/21 10/29/21 Rx tablet,extended release 24 hr .COMPLEX #30 tabs Allergies Allergy/AdvReac Type Severity Reaction Status Date / Time levofloxacin [From Levaquin] Allergy Unknown Verified 12/04/21 06:21 Sulfa (Sulfonamide Allergy Unknown Verified 12/04/21 06:21 Antibiotics) PFSH Anesthesia Medical History Hx of recurrent urinary tract infection Recurrent UTI Urolithiasis Surgical History Status post laser lithotripsy of ureteral calculus Family History Mother Healthy adult Father , AT 68 Kidney failure Social History Smoking and tobacco status: never smoked Alcohol intake: never Marital status: Current occupational status: employed History of recent travel: No Data Anesthesia Cardiac Studies: No Data to Display
--- NOTE | 2021-12-04 07:48 | P.OP_ITS ---
Operative Report Date of procedure: December 04, 2021 Pre-op diagnosis: Right ureteral injury secondary to impacted stone, needs reassessment for possible stent removal Post-op diagnosis: Same Procedure done: 1. Cystoscopy, remove right ureteral stent 2. Right retrograde ureteropyelogram 3. Right ureteroscopy, laser lithotripsy, stent placement Implants: 7 Citizen [place] by 26 cm double-pigtail stent Specimens removed/disposition: Stone fragments Pathology: stone fragments Surgeon: Jeremy Anesthesia: General Estimated blood loss: Minimal Urine output: Not measured Complications: None Findings: Condition: Stable Disposition: PACU The ureter was well-healed but there is still a fragment of the stone embedded in the wall on the lateral aspect of the previous impaction site. I could not manipulate the stone out of the impaction area with grasping forceps and had to use laser to break it up into smaller pieces that were then withdrawn. The remainder of the ureter looked good. All fragments removed. Stent left indwelling for further healing Brief History: Silvina is a very pleasant 51-year-old white female who was discovered to have a severely impacted right distal ureteral stone recently with moderate to severe obstructive proximal changes. Initial attempt at treating the stone with endoscopy was only successful as far as placing a stent for passive dilation and drainage of the kidney. There was severe inflammatory changes identified as well as hypertrophic mucosal proliferation with obscuring of the stone in the walled off area. After a period of passive dilation a reattempt ureteroscopy was successful in accessing the stone which was found to be severely impacted but it was completely fragmented and the fragments removed. Follow-up KUB confirmed the stent in good position and no residual obvious fragments. The concern related to the condition of the ureter status post chronic impaction has led to this third procedure for reevaluation of the impaction site before removal of the stent. If found to be an adequately healed as of today stent will be replaced and consideration for relook later versus just taking the stent out if it looks like it is very close to adequate healing Procedure: After routine preoperative evaluation examination and obtaining of informed consent she was taken to the operating suite on 12/04/2021 where general anesthesia was administered without difficulty after appropriate timeout was performed, SCDs confirmed to be functioning, preoperative antibiotics administered, beta-livia protocol confirmed. Prepped and draped in the usual sterile fashion in dorsolithotomy position paying careful attention to avoiding pressure points. 21 [place] cystoscope with 30 degree lens was introduced into the urethra meatus and advanced into the bladder under videoscopy. Bladder was systematically examined. Stent was not encrusted. The distal aspect of the stent was secured in grasping forceps and withdrawn through the urethral meatus where a flexible tip guidewire was easily advanced up the stent curling in the area of the renal pelvis. The stent was then removed. Wire was secured to the drapes as a safety wire. A 7 [place] offset semirigid ureteroscope was then advanced into the bladder and up the right ureter next to the guidewire. The ureter was carefully inspected. There remained a fragment secured to the lateral aspect of the right ureteral impaction site. I could not tell initially whether this was just on the surface of the mucosa but with some probing with grasping forceps it was clear that it was still somewhat impacted. I could not freed up adequately with a grasping forceps and therefore used a 200 ?m thulium superpulse laser fiber to fragment and to complete the freeing up of these fragments from the lateral wall. These were removed with the X catch basket. Were not for that one area the ureter was very adequately healed and would not require stent but because of the work done described above it was decided to leave a stent indwelling for further healing before stent removal. Contrast was then injected from the distal ureter proximally through the ureteroscope showing no evidence of extravasation. On final passage of the scope the ureter was inspected from the UPJ all the way down to the distal aspect and no residual fragments were seen. Fragments were removed from the bladder via flushing through the cystoscope. Cystoscope was then backloaded over the guidewire and a 7 [place] by 26 cm double-pigtail stent was advanced over the guidewire through the cystoscope into appropriate position as confirmed via fluoroscopy and cystoscopy. The bladder was drained and the procedure was completed. She tolerated procedure well without complications and was awakened in the operating room and returned to the recovery room in stable condition. PLANS: 1. Anticipate discharge from outpatient surgery 2. Maintain stent for 1 week then remove in clinic.
[2021-12-04] MEDS: iohexol 300 mg/mL 50 mL Btl (OR ONLY) XX (08:36)
--- NOTE | 2021-12-04 09:12 | SUR.PHASEI ---
0904 PT TO PACU 5 SLEEPY WITH ORAL AIRWAY IN PLACE, GOOD RESP EFFORT SATS QUICKLY UP TO 100% MONITOR SR WITH NO ECTOPY, PT ID BRACELET TO LT WRIST , PT ID'D WITH 2 IDENTIFIERS, IV #20 TO RT AC PATENT TO NS 300ML UP AT KVO RATE PER GRAVITY. HOB AT 30 DEGREES.
--- NOTE | 2021-12-04 09:14 | SUR.PHASEI ---
PT AWAKES TO VOICE, ORAL AIRWAY OUT, PT WITH SCDS ON BILATERALLY AND WORKING, GOOD RESP EFFORT NOTED.
--- NOTE | 2021-12-04 09:22 | SUR.PHASEI ---
PT NOW ON RA, VSS IV PATENT. PT DENIES PAIN AND NAUSEA.
--- NOTE | 2021-12-04 09:38 | PC.NURSE ---
Attempted to set appointment up with urology. Talked to 2 different people in the clinic they both was unable to set up appointment so they took a message so that someone can get the appointment made for the patient.
--- NOTE | 2021-12-04 18:04 | ANE.PACU2 ---
Inpatient post-anesthesia follow up: Airway intact: Yes Vital signs: Temperature 98.1 F Pulse Rate 71 Respiratory Rate 18 Blood Pressure 135/74 Pulse Oximetry 100 Oxygen Delivery Me thod Room Air Oxygen Flow Rate 8 Fraction of Inspir ed Oxygen Hydration adequate: Yes Nausea and vomiting: No Pain level: 1 Mental status: Baseline
== END 2021-12-04 10:40 | disposition home or self-care (01) ==
PROVIDERS: PCP Nurse Practitioner Family; Visit Provider Urology
PROC: 0TJB8ZZ Inspection of Bladder, Via Natural or Artificial Opening Endoscopic (ICD-10-PCS; CPT 52000; principal; 2021-12-04 07:40)
PROC: 0TJ98ZZ Inspection of Ureter, Via Natural or Artificial Opening Endoscopic (ICD-10-PCS; CPT 52351; 2021-12-04 07:40)
PROC: (CPT 74420; 2021-12-04 07:40)
PROC: (CPT 52356; 2021-12-04 07:40)
PROC: (CPT 52356; 2021-12-04 07:40)
DX: N20.1 Calculus of ureter (principal)
CPT/HCPCS: 52356; 76000; 82365; 88300; A7015; C2625; J1100; J1200; J2405; J2704; J3010; J7030

== ENCOUNTER 2021-12-16 15:13 | Outpatient (CLI) | payer OTHER, SELFPAY ==
--- NOTE | 2021-12-16 15:19 | XRR_ITS ---
PROCEDURE INFORMATION: Exam: XR Abdomen Exam date and time: 12/16/2021 3:23 PM Age: 51 years old Clinical indication: Condition or disease; Kidney or ureter condition; Calculus (stone) in kidney and calculus (stone) in ureter; Prior surgery; Surgery type: Stent; Additional info: Stones, kub angeline 12/16/21 @ 3:00 pm appt to follow TECHNIQUE: Imaging protocol: Radiologic exam of the abdomen. Views: Frontal supine view of the abdomen. 1 View. COMPARISON: CR XR KUB [id number] 11/29/2021 7:13 AM FINDINGS: Tubes, catheters and devices: Right ureteral stent seen similar to prior exam. Gastrointestinal tract: Normal. No bowel dilation. Vasculature: Several punctate calcifications over the pelvis, similar to prior exam, perhaps reflecting phleboliths or uterine calcifications, residual urinary calculi are not completely excluded. Bones/joints: Unremarkable. XR/XR KUB [id number] IMPRESSION: 1. Right ureteral stent seen similar to prior exam. 2. Several punctate calcifications over the pelvis, similar to prior exam, perhaps reflecting phleboliths or uterine calcifications, residual urinary calculi are not completely excluded.
== END 2021-12-16 15:14 | disposition home or self-care (01) ==
LOC: RAD 15:15
PROVIDERS: PCP Nurse Practitioner Family; Visit Provider Urology
DX: N20.1 Calculus of ureter (principal); Z96.0 Presence of urogenital implants; R33.9 Retention of urine, unspecified
CPT/HCPCS: 74018; 81003

== ENCOUNTER → 2022-02-28 14:17 | Outpatient (BNVA) | payer OTHER, SELFPAY | PROVIDERS: PCP Nurse Practitioner Family; Visit Provider Nurse Practitioner Family | DX: R30.0 Dysuria (principal); R10.9 Unspecified abdominal pain | CPT/HCPCS: 81000 ==

== ENCOUNTER 2022-03-13 08:36 | Outpatient (CLI) | payer OTHER, SELFPAY ==
--- NOTE | 2022-03-13 09:15 | US_ITS ---
WS: [id number] RENAL ULTRASOUND HISTORY: HYDRONEPHROSIS COMPARISON: 08/23/2021 TECHNIQUE: 2-D and color Doppler imaging of the kidney submitted. Right kidney: 10.3 cm x 5.2 cm x 5.0 cm. Normal echogenicity with no hydronephrosis or mass. Hydronephrosis identified on the prior study of is no longer present. Left kidney: 9.8 cm x 4.3 cm x 4.7 cm. Normal echogenicity with no hydronephrosis or mass. Aorta: Normal. Urinary Bladder: Nondistended. US/US renal BI* [id number] IMPRESSION: Normal renal ultrasound. Interval resolution of the hydronephrosis identified on 08/23/2021.
== END 2022-03-13 08:37 | disposition home or self-care (01) ==
LOC: RAD 08:38
PROVIDERS: PCP Nurse Practitioner Family; Visit Provider Urology
DX: N13.30 Unspecified hydronephrosis (principal)
CPT/HCPCS: 76770; 81003

== ENCOUNTER 2022-06-23 06:24 | Observation (INO) | payer OTHER, SELFPAY ==
[2022-06-23 06:32] VITALS: BMI 28.3
[2022-06-23 06:37] VITALS: BP 147/84; PULSE 88; RESP 21; TEMP 37.1; O2SAT 96
--- NOTE | 2022-06-23 06:51 | W.ED.FEMALGU ---
HPI - Female Genitourinary General: Chief complaint: Urogenital-Female Stated complaint: possible kidney stones Time Seen by Provider: 06/23/22 06:48 Source: patient Mode of arrival: ambulatory History of Present Illness: 51-year-old female presents emergency room with severe right flank pain. She has a history of severe right nephrolithiasis. In August 2021 she had a relatively small stone that was lodged proximally required intervention reviewing the right urologist notes that he had a fair amount of difficulty in manipulating the stone and getting a stent past because of some stenosis at that level. She states she is having similar pain again. MD elicited complaint: flank pain Pertinent past history: other (Nephrolithiasis) Onset (ago): hour(s) Location of symptoms: flank Quality of pain: sharp Consistency: constant Associated symptoms: Deny abdominal pain, short of breath, fevers/chills, headache(s), nausea, rash, seizures, syncope, vaginal bleeding, vaginal discharge or weakness Treatment prior to arrival: none Review of Systems Const: Denies: fever(s), chills, body aches, change in appetite, fatigue or malaise ENMT: Denies: throat pain, ear or mastoid pain, nasal discharge or nasal congestion Card: Denies: syncope Resp: Denies: dyspnea, productive cough or non-productive cough GI: Denies: abdominal pain or nausea : Reports: flank pain; Denies: vaginal discharge Skin/Breast: Denies: rash or pruritus Neuro: Denies: headache(s) PFSH ED PFSH: Medical History Hx of recurrent urinary tract infection Recurrent UTI Urolithiasis Surgical History Status post laser lithotripsy of ureteral calculus Family History Mother Healthy adult Father , AT 68 Kidney failure Social History Smoking and tobacco status: never smoked Alcohol intake: never Marital status: Current occupational status: employed Physical Exam Const: COMMON NORMALS: no acute distress GENERAL APPEARANCE: cooperative and comfortable ORIENTATION/CONSCIOUSNESS: Yes awake, Yes oriented to person, Yes oriented to place and Yes oriented to time HENMT: COMMON NORMALS: normocephalic, atraumatic and hearing grossly normal bilaterally HEAD & SCALP: normocephalic and atraumatic Resp: COMMON NORMALS: normal respiratory effort, No retractions, No use of accessory muscles and clear to auscultation bilaterally AUSCULTATION: clear to auscultation bilaterally Cardio: COMMON NORMALS: regular rate, regular rhythm and No murmurs present (Cardio) RATE: regular rate RHYTHM: regular rhythm GI: COMMON NORMALS: Soft to palpation and No hepatosplenomegaly present AUSCULTATION: Yes normoactive bowel sounds PALPATION: Yes Soft to palpation, No Tenderness to palpation present (GI), No Guarding due to palpation present (GI) and Yes No hepatosplenomegaly present : BLADDER/KIDNEY EXAM: Yes CVA tenderness on the left SPECULUM EXAM - VAGINA: No vaginal bleeding OB/EXTERNAL & SPECULUM: No vaginal bleeding Back/Pelvis: GENERAL BACK: Yes CVA tenderness Extremity: COMMON NORMALS: no calf tenderness and no pedal edema OTHER: Well-demarcated Raynauds phenomenon with white blanching of the fingers to the proximal portion of the proximal phalanx and the distal half of the toes. No blanching no capillary refill no joint effusion noted at this time Neuro: SENSORIUM/ORIENTATION: Yes oriented to person, Yes oriented to place and Yes oriented to time Skin: COMMON NORMALS: no rashes or lesions noted GENERAL SKIN EXAM: no rashes or lesions noted Course Vital Signs: Vital signs: Vital Signs Temperature 98.8 F 06/23/22 06:37 Pulse Rate 88 06/23/22 06:37 Respiratory Rate 16 06/23/22 12:46 Blood Pressure 147/84 06/23/22 06:37 Pulse Oximetry 95 06/23/22 12:46 Oxygen Delivery Me thod 06/23/22 12:46 MDM - Female Medical Decision Making Initial KUB could not definitively identify stone CT shows stone 4 mm calcification in the distal ureter. Her pain is very difficult to control. After discussion with Dr. Luna and with the patient we decided to place patient on observation because of the difficulty she had with previous stones as well as difficulty encountered with the stone and achieving pain control. Additionally patient has pretty well-demarcated rainouts-like phenomenon. We will decrease her Toprol-XL to 12.5 daily and add amlodipine 5 mg daily and case management has been asked to make referral to rheumatology. This is a distinct issue from the nephrolithiasis that is precipitating her observation status Medical Records I reviewed the patient's medical records. Lab Data I reviewed the patient's lab results. 06/23/22 07:15 06/23/22 07:15 Radiology Impressions KUB X-Ray 06/23/22 08:11 Impression: Large amount of fecal material in the colon Abdomen/Pelvis CT 06/23/22 08:44 IMPRESSION: 1. Moderate RIGHT hydroureteronephrosis secondary to a 4 mm calcification in the distal ureter. Additional nonobstructing RIGHT renal calcification. 2. No appendicitis. 3. Mild atherosclerosis aorta. 4. Fibroid uterus. Laboratory Results WBC 7.0 10^3/uL (4.0-10.0) 06/23/22 07:15 RBC 5.19 10^6/uL (4.1-5.3) 06/23/22 07:15 Hgb 14.4 g/dL (11.5-15.3) 06/23/22 07:15 Hct 45.1 % (37.0-47.0) 06/23/22 07:15 MCV 86.9 fl (81-99) 06/23/22 07:15 MCH 27.7 pg (28.0-34.0) L 06/23/22 07:15 MCHC 31.9 g/dL (30.0-36.0) 06/23/22 07:15 RDW 12.6 % (12.1-15.1) 06/23/22 07:15 Plt Count 224 10^3/cmm (130-400) 06/23/22 07:15 MPV 11.1 fL (7.4-10.4) H 06/23/22 07:15 Neut % (Auto) 80.6 % 06/23/22 07:15 Lymph % (Auto) 14.5 % 06/23/22 07:15 [place] % (Auto) 3.6 % 06/23/22 07:15 Eos % (Auto) 0.7 % 06/23/22 07:15 Baso % (Auto) 0.3 % 06/23/22 07:15 Neut # (Auto) 5.67 10^3/uL (1.8-7.7) 06/23/22 07:15 Lymph # (Auto) 1.0 10^3/uL (0.8-4.8) 06/23/22 07:15 [place] # (Auto) 0.3 10^3/uL (0.2-0.9) 06/23/22 07:15 Eos # (Auto) 0.1 10^3/uL (0.0-0.8) 06/23/22 07:15 Baso # (Auto) 0.0 10^3/uL (0.0-0.1) 06/23/22 07:15 Nucleated RBC % (auto) 0 % 06/23/22 07:15 Nucleated RBCs # 0.0 /100WBC 06/23/22 07:15 Sodium 139 mmol/L (136-145) 06/23/22 07:15 Potassium 4.0 mmol/L (3.5-5.1) 06/23/22 07:15 Chloride 104 mmol/L (98-107) 06/23/22 07:15 Carbon Dioxide 23 mmol/L (22-29) 06/23/22 07:15 Anion Gap 16.0 (5-19) 06/23/22 07:15 BUN 13 mg/dL (6-20) 06/23/22 07:15 Creatinine 0.7 mg/dL (0.5-0.9) 06/23/22 07:15 GFR Calculation 88.9 mL/min (90-130) L 06/23/22 07:15 Glucose 124 mg/dL (65-115) H 06/23/22 07:15 Calculated Osmolality 290 mOsm/kg (285-295) 06/23/22 07:15 Calcium 9.1 mg/dL (8.5-10.5) 06/23/22 07:15 Urine Color Yellow (Yellow) 06/23/22 06:50 Urine Appearance Hazy (CLEAR) A 06/23/22 06:50 Urine pH 6 (5-7) 06/23/22 06:50 Ur Specific [place] 1.020 (1.005-1.030) 06/23/22 06:50 Urine Protein Neg (Negative) 06/23/22 06:50 Urine Glucose (UA) Norm (Normal) 06/23/22 06:50 Urine Ketones Negative (Negative) 06/23/22 06:50 Urine Blood 2+ (Negative) H 06/23/22 06:50 Urine Nitrate Negative (Negative) 06/23/22 06:50 Urine Bilirubin Neg (Negative) 06/23/22 06:50 Urine Urobilinogen Norm mg/dL (Negative) 06/23/22 06:50 Ur Leukocyte Esterase Negative (Negative) 06/23/22 06:50 Urine RBC 5-10 /hpf (0-2) H 06/23/22 06:50 Urine WBC None /hpf (0-5) 06/23/22 06:50 Ur Squamous Epith Cells 10-15 /hpf (0-5) H 06/23/22 06:50 Amorphous Sediment Not Reportable 06/23/22 06:50 Urine Bacteria Trace /hpf (NONE) 06/23/22 06:50 Urine Mucus 1+ /hpf 06/23/22 06:50 Discharge Plan Discharge Patient Disposition: Placed in Observation Clinical Impression: Urolithiasis, Raynaud phenomenon Condition: Stable Prescriptions: No Action multivitamin Tablet 1 tab PO DAILY magnesium 250 mg tablet 250 mg PO DAILY metoprolol succinate 25 mg tablet extended release 24 hr 25 mg PO DAILY Referrals: Rodrick Luna MD [Primary Care Provider] - Coding Level of Care Code ED Certified Orthotic Fitter for Fady Chase
[2022-06-23 07:20] VITALS: RESP 18
[2022-06-23] MEDS: ondansetron 2 mg/ML SDV 2 mL 4 MG IVP (07:20)
[2022-06-23] MEDS: morphine 4 mg/mL SDV 1 mL IVP (07:20)
[2022-06-23 07:25] LABS: Basophils % 0.3 %; Eosinophils # 0.1 10^3/uL (0.0-0.8); Eosinophils % 0.7 %; Hematocrit 45.1 % (37.0-47.0); Hemoglobin 14.4 g/dL (11.5-15.3); Lymphocytes % 14.5 %; Mean Corpuscular HGB Conc 31.9 g/dL (30.0-36.0); Mean Corpuscular Hemoglobin 27.7 pg (28.0-34.0); Mean Corpuscular Volume 86.9 fl (81-99); Mean Platelet Volume 11.1 fL (7.4-10.4); Monocytes # 0.3 10^3/uL (0.2-0.9); Monocytes % 3.6 %; Neutrophils # 5.67 10^3/uL (1.8-7.7); Neutrophils % 80.6 %; Nucleated Red Blood Cells % 0 %; Platelet Count 224 10^3/cmm (130-400); Red Blood Count 5.19 10^6/uL (4.1-5.3); Red Cell Distribution Width 12.6 % (12.1-15.1)
[2022-06-23 07:25] LABS: Add Urine Culture? Yes; Add Urine Microscopic? YES; Bacteria Urine TRACE /hpf; Bilirubin Urine Neg (Negative); Blood Urine 2+ (Negative); Glucose Urine UA Norm (Normal); Ketones Urine Negative (Negative); Leukocyte Esterase Urine Negative (Negative); Mucus Urine 1+ /hpf; Nitrate Urine Negative (Negative); Protein Urine Neg (Negative); Urine Appearance Hazy (CLEAR); Urine Color Yellow (Yellow); Urobilinogen Urine Norm (Negative); pH Urine 6 (5-7)
[2022-06-23 07:40] LABS: Blood Urea Nitrogen 13 mg/dL (6-20); Calcium 9.1 mg/dL (8.5-10.5); Carbon Dioxide 23 mmol/L (22-29); Chloride 104 mmol/L (98-107); Glomerular Filtration Rate 88.9 mL/min (90-130); Glucose 124 mg/dL (65-115); Osmolality Calculated 290 mOsm/kg (285-295); Sodium 139 mmol/L (136-145)
--- NOTE | 2022-06-23 08:11 | XR_ITS ---
WS: [id number] KUB, AP portable supine, 06/23/2022 Clinical Data: renal stone Comparison: KUB, 12/16/2021 Findings: No abnormal intraabdominal masses or calcifications are seen. There is no dilatated small bowel or ev idence of obstruction. There is a large amount of fecal material in the colon obscuring detail over both kidneys. There is a slight levoscoliosis. XR/XR KUB portable [id number] Impression: Large amount of fecal material in the colon
--- NOTE | 2022-06-23 08:44 | CT_ITS ---
WS: [id number] CT ABDOMEN AND PELVIS NONCONTRAST HISTORY: flank pain, RIGHT lower quadrant and right-sided back pain. TECHNIQUE: Imaging performed through the abdomen and pelvis. Coronal and sagittal reformats are submi tted. All CT scans at [facility] use at least one of these dose optimization techniques: auto mated exposure control; mA and/or kV adjustment per patient size (includes targeted exams where dose is matched to clinical indication); or iterative reconstruction. DLP: 690.90 mGy.cm COMPARISON: 09/19/2021 Lower thorax: Mildly hyperexpanded lung bases a few very minimal scattered opacifications which may b e part be related to atelectasis and dependent change. Heart size is normal. Small hiatal hernia. Liver: Normal size liver. No mass or bile duct dilatation. Gallbladder: Normal gallbladder. Pancreas: Normal size and attenuation. Normal pancreatic duct. No pancreatitis or mass. Spleen: Normal. Adrenal glands: Normal. No mass. Right kidney: Enlarged mildly edematous RIGHT kidney. There is only very minimal perinephric strandin g. RIGHT renal pelvis and ureter are dilated to the distal ureter. There is a 4 mm calcification in t he distal ureter. There is an additional nonobstructing calcification in the lower pole measuring 4 m m. Left kidney: Normal size kidney with no mass or hydronephrosis. Aorta: Mild atherosclerosis abdominal aorta with no aneurysm. No free fluid, intraperitoneal air or significant lymphadenopathy. GI tract: Stomach is moderately well distended with fluid. No small bowel obstruction or wall thicken ing identified. No appendicitis. Diffuse mild constipation. Sigmoid diverticulosis without acute dive rticulitis. Abdominal wall: Small umbilical hernia contains fat only. Pelvis: No free fluid. Uterus is mildly lobulated and enlarged with numerous calcified masses consist ent with a fibroid uterus. Osseous structures: Unremarkable. CT/CT kidney stone [id number] IMPRESSION: 1. Moderate RIGHT hydroureteronephrosis secondary to a 4 mm calcification in t he distal ureter. Additional nonobstructing RIGHT renal calcification. 2. No appendicitis. 3. Mild atherosclerosis aorta. 4. Fibroid uterus.
[2022-06-23 08:52] VITALS: RESP 19
[2022-06-23] MEDS: morphine 4 mg/mL SDV 1 mL 6 MG IVP (08:52)
[2022-06-23] MEDS: promethazine 25 mg/mL SDV 1 mL IM (10:21)
[2022-06-23] MEDS: HYDROmorphone 1 mg/mL INJ 1 mL 0.5 MG IVP (10:28)
[2022-06-23] MEDS: sodium chloride 0.9% 1,000 ML 999 ML IV (11:31)
[2022-06-23 12:46] VITALS: RESP 16; O2SAT 95
[2022-06-23] MEDS: D5-NS 0.45% + KCL 20 mEq 20 MEQ/1,000 ML BAG 125 MEQ IV ×2 (15:29→23:47)
--- NOTE | 2022-06-23 15:49 | DCPLANNER ---
Addendum entered by Sheryl Almanzar 09/22/22 11:16: Patient had a follow up appointment at rheumatology - patient did attend appointment. Addendum entered by Sheryl Almanzar 06/24/22 13:33: Patient has a follow up appointment scheduled for Thursday, September 15, 2022 at 10:[address] Cox at rheumatology. Clinic will call patient with appointment information. Original Note: corporate operations compliance manager had message to schedule a followup appointment for patient with rheumatology. corporate operations compliance manager sent patients information to the front office staff at rheumotology. Patients information will be printed and reviewed. Clinic will call patient with appointment information.
--- NOTE | 2022-06-23 17:27 | PM.HP ---
Providers/Chief Complaint Admitting Physician: Rodrick Luna MD Primary Care Provider: Rodrick Luna MD Chief Complaint: possible kidney stones History of Present Illness Silvina Zazueta is a 51 year old female well-known to me for history of recurrent urolithiasis. She had a very complex stone previously that was impacted in the right distal ureter with severe inflammatory changes at the site of impaction leading to multiple procedures to finally clear and a prolonged stent afterwards for complete healing. Relook ureteroscopy showed that she had healed well and a follow-up ultrasound 3 months after stent removed late last year showed that she had no evidence of persistence of hydronephrosis. Last night she developed recurrent renal colicky symptoms on the right and overnight it became severe and associate with nausea and vomiting. Could not get it controlled with oral narcotics. Presented to the emergency department with uncontrolled pain and a CT scan showed high-grade obstructive changes located in the right ureter and renal pelvis associated with a distal 4 mm stone. The area of obstruction occurred roughly where the previous stone had been located. Aggressive attempts at pain controlled in the emergency department only partially successful. She was admitted for further evaluation and treatment and symptomatic control. No evidence of significant infectious concerns. Review of Systems Const: Denies: fever(s), chills or body aches Eyes: Denies: change in vision ENMT: Denies: hoarseness Card: Denies: chest pain or palpitations Resp: Denies: dyspnea or productive cough GI: Reports: abdominal pain, nausea and vomiting : Reports: flank pain; Denies: dysuria Musc: Reports: other (Blanching of her hands in cold weather) Skin/Breast: Denies: rash or new lesions Neuro: Denies: confusion, behavioral changes or Slurred speech present Endo: Denies: flushing [place]/Lymph: Denies: easy bruising or easy bleeding All/Imm: Denies: acute wheezing Medications/Allergies Home Medications Medication Instructions Recorded Confirmed Last Taken Type multivitamin 1 tab PO DAILY 10/17/20 06/23/22 06/22/22 History magnesium 250 mg tablet 250 mg PO DAILY 03/13/22 06/23/22 06/22/22 History metoprolol succinate 25 mg 25 mg PO DAILY 06/23/22 06/23/22 06/22/22 History tablet,extended release 24 hr Allergies Allergy/AdvReac Type Severity Reaction Status Date / Time levofloxacin [From Levaquin] Allergy Unknown Verified 06/23/22 10:56 Sulfa (Sulfonamide Allergy Unknown Verified 06/23/22 10:56 Antibiotics) PFSH Acute PFSH: Medical History Hx of recurrent urinary tract infection Recurrent UTI Urolithiasis Surgical History Status post laser lithotripsy of ureteral calculus Family History Mother Healthy adult Father , AT 68 Kidney failure Social History Smoking and tobacco status: never smoked Alcohol intake: never Marital status: Current occupational status: employed Vitals/I&O/Wt Last Vital Signs Temp 98.8 F 06/23/22 06:37 Pulse 88 06/23/22 06:37 Resp 16 06/23/22 12:46 BP 147/84 06/23/22 06:37 Pulse Ox 95 06/23/22 12:46 O2 Del Method 06/23/22 15:01 06/23/22 06/23/22 06/23/22 06:59 14:59 22:59 Intake Total 1000 / 1000 Balance 1000 / 1000 Weight last 48 hrs Weight 165 lb Physical Exam Const: COMMON NORMALS: no acute distress, alert and well nourished GENERAL APPEARANCE: well kempt and well developed ORIENTATION/CONSCIOUSNESS: not confused HENMT: COMMON NORMALS: normocephalic HEAD & SCALP: normal to inspection and normocephalic Eye: COMMON NORMALS: conjunctivae normal and no scleral icterus CONJUNCTIVA: Yes conjunctivae normal Neck/C-Spine: GENERAL: Yes normal visual inspection Lymph: OTHER: No neck lymphadenopathy. No extremity edema Chest: OTHER: Normal chest movements Resp: COMMON NORMALS: normal respiratory effort EFFORT & INSPECTION: Yes able to speak in complete sentences, No labored and No Actively coughing OTHER: Clear to auscultation Cardio: OTHER: Regular rate and rhythm. No murmurs. GI: OTHER: Improved tenderness. No palpable masses. : OTHER: Bladder nondistended Back/Pelvis: OTHER: Right CVA tenderness improved Extremity: COMMON NORMALS: no clubbing, cyanosis or edema Neuro: COMMON NORMALS: no focal motor deficits SENSORIUM/ORIENTATION: Yes alert Psych: COMMON NORMALS: mental status grossly normal APPEARANCE: Yes grossly normal and Yes well kempt ATTITUDE: Yes calm and Yes engaged Skin: COMMON NORMALS: no rashes or lesions noted and no jaundice GENERAL SKIN EXAM: no rashes or lesions noted Data 06/23/22 07:15 06/23/22 07:15 A&P Assessment and plan (1) Right distal ureteral calculus: 4 mm obstructing right distal ureteral stone with refractory symptoms. (2) Hydronephrosis: High-grade obstruction from the stone (3) Right flank pain: Typical for renal colic (4) Urolithiasis: (5) Raynaud phenomenon: Work-up recommended Plan 1. Focus on aggressive symptomatic control pain and nausea. 2. KUB in the morning 3. Consider intervention tomorrow if no improvement clinically. 4. Tamsulosin, strain all voids, clear liquids tonight, n.p.o. after midnight. Attestations Medical Necessity Statement*: Could not control pain adequately in the emergency department. Right renal colic associated with a right distal ureteral stone with high-grade obstruction and refractory symptoms. Coding Level of Care Code Acute Code for [facility] Diagnoses Right distal ureteral calculus N20.1 Hydronephrosis N13.30 Right flank pain R10.9 Urolithiasis N20.9 Raynaud phenomenon I73.00
[2022-06-23] MEDS: tamsulosin 0.4 mg Capsule PO (17:45)
[2022-06-23 20:00] VITALS: BP 150/88; PULSE 80; RESP 17; TEMP 36.3
[2022-06-24] VITALS: BP 107/68; PULSE 71; RESP 17; TEMP 36.4; O2SAT 96
[2022-06-24 04:00] VITALS: BP 109/69; PULSE 73; RESP 16; TEMP 36.9; O2SAT 96
[2022-06-24 05:28] LABS: Basophils % 0.2 %; Eosinophils % 0.9 %; Hematocrit 39.7 % (37.0-47.0); Hemoglobin 12.6 g/dL (11.5-15.3); Lymphocytes # 1.6 10^3/uL (0.8-4.8); Lymphocytes % 37.9 %; Mean Corpuscular HGB Conc 31.7 g/dL (30.0-36.0); Mean Corpuscular Hemoglobin 28.3 pg (28.0-34.0); Mean Platelet Volume 10.8 fL (7.4-10.4); Monocytes # 0.4 10^3/uL (0.2-0.9); Monocytes % 9.6 %; Neutrophils # 2.19 10^3/uL (1.8-7.7); Neutrophils % 51.2 %; Nucleated Red Blood Cells % 0 %; Platelet Count 199 10^3/cmm (130-400); Red Blood Count 4.46 10^6/uL (4.1-5.3); Red Cell Distribution Width 13.2 % (12.1-15.1); White Blood Count 4.3 10^3/uL (4.0-10.0)
[2022-06-24 05:46] LABS: Anion Gap 10.3 (5-19); Blood Urea Nitrogen 7 mg/dL (6-20); Calcium 8.5 mg/dL (8.5-10.5); Carbon Dioxide 25 mmol/L (22-29); Chloride 112 mmol/L (98-107); Glomerular Filtration Rate 131.1 mL/min (90-130); Glucose 122 mg/dL (65-115); Osmolality Calculated 295 mOsm/kg (285-295); Potassium 4.3 mmol/L (3.5-5.1); Sodium 143 mmol/L (136-145)
--- NOTE | 2022-06-24 06:00 | XR_ITS ---
WS: [id number] KUB, AP view, 06/24/2022 Clinical Data: Follow-up right distal ureteral stone Comparison: KUB, 06/23/2022, CT abdomen pelvis, 06/23/2022. Findings: No abnormal intraabdominal masses or calcifications are seen. There is no dilatated small bowel or ev idence of obstruction. There are calcifications in the true pelvis. The 2 calcifications on the right of the true pelvis cou ld represent distal right ureteral calculi. XR/XR KUB [id number] Impression: Possible distal right ureteral vesicle junction calculus or calculi.
--- NOTE | 2022-06-24 07:40 | P.DS_ITS ---
Discharge Providers Date of Admission: 06/23/22 14:46 Date of Discharge: June 24, 2022 Attending Provider at Admission: Rodrick Luna MD Attending Provider at Discharge: Rodrick Luna MD Consults: None Primary Care Provider: Rodrick Luna MD Diagnoses at Discharge Discharge Diagnosis (1) Right distal ureteral calculus: Details from hospital stay: Clinically she passed the stone Able to be discharged Status: Acute (2) Hydronephrosis: Status: Acute (3) Right flank pain: Status: Acute (4) Urolithiasis: Status: Acute (5) Raynaud phenomenon: Status: Acute Reason for Visit Reason for Visit: possible kidney stones Brief History: Refractory symptoms related to right distal ureteral stone with obstruction CT scan showed high-grade obstruction from a small calcification in the area of the right distal ureter. Could not control her pain adequately in the emergency department and she was admitted for further evaluation and treatment. Hospital Course Hospital Course She was aggressively managed with parenteral narcotics and her pain improved. Past something that looked about the size of the stone and it was sent for analysis. She remained asymptomatic after that point and was discharged on hospital day #2 in stable condition. Plan follow-up in about a month with a KUB but sooner for increasing symptoms. Physical Exam Narrative: Alert oriented no acute distress No labored respiration or audible wheezing Abdomen is soft nontender Doing well. Discharge Data Studies Completed and Pending Completed Studies During Hospitalization Category Date Time Status CT kidney stone [id number] Stat Cat Scan 06/23/22 08:44 Completed XR KUB portable [id number] Stat Exams 06/23/22 08:11 Completed Pending at discharge Category Date Time Status C-arm FL for Urology Stat Exams 06/24/22 12:00 Ordered XR KUB [id number] Routine Exams 06/24/22 06:00 Taken Stone Analysis Routine Lab 06/23/22 17:26 Received Urine Culture Stat Lab 06/23/22 06:50 Received Radiology Impressions Abdomen/Pelvis CT 06/23/22 08:44 IMPRESSION: 1. Moderate RIGHT hydroureteronephrosis secondary to a 4 mm calcification in the distal ureter. Additional nonobstructing RIGHT renal calcification. 2. No appendicitis. 3. Mild atherosclerosis aorta. 4. Fibroid uterus. Laboratory Results WBC 4.3 10^3/uL (4.0-10.0) 06/24/22 05:20 RBC 4.46 10^6/uL (4.1-5.3) 06/24/22 05:20 Hgb 12.6 g/dL (11.5-15.3) 06/24/22 05:20 Hct 39.7 % (37.0-47.0) 06/24/22 05:20 MCV 89.0 fl (81-99) 06/24/22 05:20 MCH 28.3 pg (28.0-34.0) 06/24/22 05:20 MCHC 31.7 g/dL (30.0-36.0) 06/24/22 05:20 RDW 13.2 % (12.1-15.1) 06/24/22 05:20 Plt Count 199 10^3/cmm (130-400) 06/24/22 05:20 MPV 10.8 fL (7.4-10.4) H 06/24/22 05:20 Neut % (Auto) 51.2 % 06/24/22 05:20 Lymph % (Auto) 37.9 % 06/24/22 05:20 [place] % (Auto) 9.6 % 06/24/22 05:20 Eos % (Auto) 0.9 % 06/24/22 05:20 Baso % (Auto) 0.2 % 06/24/22 05:20 Neut # (Auto) 2.19 10^3/uL (1.8-7.7) 06/24/22 05:20 Lymph # (Auto) 1.6 10^3/uL (0.8-4.8) 06/24/22 05:20 [place] # (Auto) 0.4 10^3/uL (0.2-0.9) 06/24/22 05:20 Eos # (Auto) 0.0 10^3/uL (0.0-0.8) 06/24/22 05:20 Baso # (Auto) 0.0 10^3/uL (0.0-0.1) 06/24/22 05:20 Nucleated RBC % (auto) 0 % 06/24/22 05:20 Nucleated RBCs # 0.0 /100WBC 06/24/22 05:20 Sodium 143 mmol/L (136-145) 06/24/22 05:20 Potassium 4.3 mmol/L (3.5-5.1) 06/24/22 05:20 Chloride 112 mmol/L (98-107) H 06/24/22 05:20 Carbon Dioxide 25 mmol/L (22-29) 06/24/22 05:20 Anion Gap 10.3 (5-19) 06/24/22 05:20 BUN 7 mg/dL (6-20) 06/24/22 05:20 Creatinine 0.5 mg/dL (0.5-0.9) 06/24/22 05:20 GFR Calculation 131.1 mL/min (90-130) H 06/24/22 05:20 Glucose 122 mg/dL (65-115) H 06/24/22 05:20 Calculated Osmolality 295 mOsm/kg (285-295) 06/24/22 05:20 Calcium 8.5 mg/dL (8.5-10.5) 06/24/22 05:20 Urine Color Yellow (Yellow) 06/23/22 06:50 Urine Appearance Hazy (CLEAR) A 06/23/22 06:50 Urine pH 6 (5-7) 06/23/22 06:50 Ur Specific [place] 1.020 (1.005-1.030) 06/23/22 06:50 Urine Protein Neg (Negative) 06/23/22 06:50 Urine Glucose (UA) Norm (Normal) 06/23/22 06:50 Urine Ketones Negative (Negative) 06/23/22 06:50 Urine Blood 2+ (Negative) H 06/23/22 06:50 Urine Nitrate Negative (Negative) 06/23/22 06:50 Urine Bilirubin Neg (Negative) 06/23/22 06:50 Urine Urobilinogen Norm mg/dL (Negative) 06/23/22 06:50 Ur Leukocyte Esterase Negative (Negative) 06/23/22 06:50 Urine RBC 5-10 /hpf (0-2) H 06/23/22 06:50 Urine WBC None /hpf (0-5) 06/23/22 06:50 Ur Squamous Epith Cells 10-15 /hpf (0-5) H 06/23/22 06:50 Amorphous Sediment Not Reportable 06/23/22 06:50 Urine Bacteria Trace /hpf (NONE) 06/23/22 06:50 Urine Mucus 1+ /hpf 02/27/23 06:50 Procedures Performed Parenteral narcotics and antiemetics along with hydration Vitals Last Vital Signs Temp 98.4 F 06/24/22 04:00 Pulse 73 06/24/22 04:00 Resp 16 06/24/22 04:00 BP 109/69 06/24/22 04:00 Pulse Ox 96 06/24/22 04:00 O2 Del Method 06/23/22 15:01 Discharge Plan Discharge Patient Disposition: Home Condition: Stable Prescriptions: Continued multivitamin Tablet 1 tab PO DAILY magnesium 250 mg tablet 250 mg PO DAILY metoprolol succinate 25 mg tablet extended release 24 hr 25 mg PO DAILY Discharge Orders: Discharge Order (Routine); Ordered 06/24/22 Ordered By: Rodrick Luna Referrals: Rodrick Luna MD [Primary Care Provider] - 1 month ([facility] ) Discharge Diet: Usual diet Discharge Activity: Increase activity as tolerated Patient Instructions: Opioid Safety Discharge Attestations Time Spent in Discharge Care*: less than 30 min Quality Metrics Clinical Quality Measures [ No reported AMI, CVA or VTE this stay] Coding Level of Care Code Acute Code for [facility] Diagnoses Right distal ureteral calculus N20.1 Hydronephrosis N13.30 Right flank pain R10.9 Urolithiasis N20.9 Raynaud phenomenon I73.00
[2022-06-24 08:38] VITALS: BP 109/69; PULSE 73; RESP 16; TEMP 36.9; O2SAT 96
[2022-07-02 22:29] LABS: Stone Source OTHER
== END 2022-06-24 08:38 | disposition home or self-care (01) | DRG 694 ==
LOC: ER 13:51 → MEDSURG 17:24
PROVIDERS: Admitting Provider Urology; Emergency Provider Family Medicine; PCP Urology; Visit Provider Urology
DX: N13.2 Hydronephrosis with renal and ureteral calculous obstruction (principal); I73.00 Raynaud's syndrome without gangrene; N13.30 Unspecified hydronephrosis; Z87.440 Personal history of urinary (tract) infections; I10 Essential (primary) hypertension
CPT/HCPCS: 36415; 74018; 74176; 80048; 81001; 82365; 85025; 87086; 88300; 96361; 96372; 96374; 96375; 96376; 99285; G0378; J1170; J2270; J2405; J2550; J7030

== ENCOUNTER 2022-07-06 20:43 | Emergency (ER) | payer OTHER, SELFPAY ==
[2022-07-06 20:45] VITALS: BP 147/102; PULSE 93; RESP 16; TEMP 36.7; O2SAT 96
--- NOTE | 2022-07-06 21:11 | CTR_ITS ---
PROCEDURE INFORMATION: Exam: CT Abdomen And Pelvis Without Contrast Exam date and time: 07/06/2022 9:24 PM Age: 51 years old Clinical indication: Abdominal pain; Flank; Right; Additional info: Right flank pain TECHNIQUE: Imaging protocol: Computed tomography of the abdomen and pelvis without contrast. Radiation optimization: All CT scans at this facility use at least one of these dose optimization techniques: automated exposure control; mA and/or kV adjustment per patient size (includes targeted exams where dose is matched to clinical indication); or iterative reconstruction. REPORTING DATA: Count of CT and Cardiac NM exams in prior 12 months: This patient has received 2 known CTs and 0 known cardiac nuclear medicine studies in the 12 months prior to the current study. COMPARISON: CT kidney stone [id number] 06/23/2022 8:54 AM RADIATION DOSE METRICS: Total DLP (mGy-cm): 747.72 FINDINGS: Liver: Normal. No mass. Gallbladder and bile ducts: Normal. No calcified stones. No ductal dilation. Pancreas: Normal. No ductal dilation. Spleen: Normal. No splenomegaly. Adrenal glands: Normal. No mass. Kidneys and ureters: Interval resolution of previous right UVJ stone. Decreased right hydronephrosis with moderate residual. Stomach and bowel: Unremarkable. No obstruction. No mucosal thickening. Appendix: Normal appendix. Intraperitoneal space: Unremarkable. No free air. No significant fluid collection. Vasculature: Calcification of the abdominal aorta and/or iliac arteries consistent with atherosclerotic vessel disease. One or more calcified pelvic phleboliths. Lymph nodes: Unremarkable. No enlarged lymph nodes. Urinary bladder: Unremarkable as visualized. Reproductive: Unremarkable as visualized. Bones/joints: Idiopathic S-shaped scoliosis. Soft tissues: Unremarkable. CT/CT abdomen pelvis wo con [id number] IMPRESSION: 1. Interval resolution of previous right UVJ stone. 2. Decreased right hydronephrosis with moderate residual.
[2022-07-06] MEDS: ketorolac 30 mg/mL INJ IVP (21:23)
[2022-07-06] MEDS: ondansetron 2 mg/ML SDV 2 mL 4 MG IVP (21:23)
--- NOTE | 2022-07-06 21:30 | W.ED.BACK ---
HPI - Back Pain/Injury General: Chief Complaint: Back Pain/Injury Stated Complaint: back pain,n/v Time Seen by Provider: 07/06/22 20:51 History of Present Illness: This 51-year-old female with a history of hypertension, urolithiasis and recurrent UTIs, presents to the ER with right flank pain that started today. She notes that yesterday, she had some left dull flank ache that got better and is currently not there. However, today, the right flank pain, which currently radiates down to the right groin, started and has progressively worsened. Patient took a dose of hydrocodone at home but vomited about half an hour later. She has dysuria, frequency and urgency. Patient had chills earlier but no documented fever. She appears uncomfortable due to pain. Associated symptoms: Reports abdominal pain (Right flank pain that radiates to the right groin.), dysuria and urinary urgency Review of Systems General: Reports: 10 or more systems reviewed and unremarkable except in HPI and below GI: Reports: abdominal pain (Right flank pain that radiates to the right groin.) : Reports: dysuria, urinary frequency and urinary urgency [facility] ED PFSH: Medical History Hx of recurrent urinary tract infection Recurrent UTI Urolithiasis Surgical History Status post laser lithotripsy of ureteral calculus Family History Mother Healthy adult Father , AT 68 Kidney failure Social History Smoking and tobacco status: never smoked Alcohol intake: never Marital status: Current occupational status: employed Physical Exam Const: COMMON NORMALS: no acute distress, patient oriented x3, no limitations and alert Chest: COMMONS NORMALS: normal inspection of the chest Resp: COMMON NORMALS: normal respiratory effort, No retractions, No use of accessory muscles, clear to auscultation bilaterally and percussion normal AUSCULTATION: clear to auscultation bilaterally PERCUSSION: percussion normal Cardio: COMMON NORMALS: regular rate, regular rhythm and No murmurs present (Cardio) RATE: regular rate RHYTHM: regular rhythm GI: COMMON NORMALS: Normal to inspection, nondistended, normoactive bowel sounds present OTHER: Right flank tenderness. : COMMON NORMALS: Yes no CVA tenderness BLADDER/KIDNEY EXAM: Yes no CVA tenderness Back/Pelvis: COMMON NORMALS: no CVA tenderness and no thoracic nor lumbar tenderness Extremity: GENERAL: Yes normal exam except as noted Neuro: COMMON NORMALS: patient oriented x3 and no focal motor deficits SENSORIUM/ORIENTATION: Yes alert Course Vital Signs: Vital signs: Vital Signs Temperature 98.1 F 07/06/22 20:45 Pulse Rate 93 07/06/22 20:45 Respiratory Rate 16 07/06/22 20:45 Blood Pressure 147/102 07/06/22 20:45 Pulse Oximetry 96 07/06/22 20:45 Oxygen Delivery Me thod 07/06/22 20:45 MDM - Back Pain/Injury Medical Decision Making Medical decision making: Patient presents with right flank pain which started today and has progressively worsened. UA is indicative of UTI. CT abdomen/pelvis was obtained to rule out any potential ureteral stones. It is negative for same. She has cefuroxime at home which had been given to her by her urologist. Patient was advised to start taking it. She also has Percocet which she was advised to take if she needs it. She was advised to maintain adequate fluid intake and to follow-up with her primary care physician and urologist. Reasons to return were discussed. Labs 07/06/22 21:15 07/06/22 21:15 Radiology Impressions Abdomen/Pelvis CT 07/06/22 21:11 IMPRESSION: 1. Interval resolution of previous right UVJ stone. 2. Decreased right hydronephrosis with moderate residual. Laboratory Results WBC 10.4 10^3/uL (4.0-10.0) H 07/06/22 21:15 RBC 5.14 10^6/uL (4.1-5.3) 07/06/22 21:15 Hgb 14.2 g/dL (11.5-15.3) 07/06/22 21:15 Hct 43.8 % (37.0-47.0) 07/06/22 21:15 MCV 85.2 fl (81-99) 07/06/22 21:15 MCH 27.6 pg (28.0-34.0) L 07/06/22 21:15 MCHC 32.4 g/dL (30.0-36.0) 07/06/22 21:15 RDW 12.5 % (12.1-15.1) 07/06/22 21:15 Plt Count 221 10^3/cmm (130-400) 07/06/22 21:15 MPV 11.0 fL (7.4-10.4) H 07/06/22 21:15 Neut % (Auto) 84.2 % 07/06/22 21:15 Lymph % (Auto) 8.5 % 07/06/22 21:15 [place] % (Auto) 6.0 % 07/06/22 21:15 Eos % (Auto) 0.7 % 07/06/22 21:15 Baso % (Auto) 0.3 % 07/06/22 21:15 Neut # (Auto) 8.73 10^3/uL (1.8-7.7) H 07/06/22 21:15 Lymph # (Auto) 0.9 10^3/uL (0.8-4.8) 07/06/22 21:15 [place] # (Auto) 0.6 10^3/uL (0.2-0.9) 07/06/22 21:15 Eos # (Auto) 0.1 10^3/uL (0.0-0.8) 07/06/22 21:15 Baso # (Auto) 0.0 10^3/uL (0.0-0.1) 07/06/22 21:15 Nucleated RBC % (auto) 0 % 07/06/22 21:15 Nucleated RBCs # 0.0 /100WBC 07/06/22 21:15 Sodium 138 mmol/L (136-145) 07/06/22 21:15 Potassium 3.8 mmol/L (3.5-5.1) 07/06/22 21:15 Chloride 99 mmol/L (98-107) 07/06/22 21:15 Carbon Dioxide 24 mmol/L (22-29) 07/06/22 21:15 Anion Gap 18.8 (5-19) 07/06/22 21:15 BUN 8 mg/dL (6-20) 07/06/22 21:15 Creatinine 0.7 mg/dL (0.5-0.9) 07/06/22 21:15 GFR Calculation 88.9 mL/min (90-130) L 07/06/22 21:15 Glucose 115 mg/dL (65-115) 07/06/22 21:15 Calculated Osmolality 285 mOsm/kg (285-295) 07/06/22 21:15 Calcium 9.7 mg/dL (8.5-10.5) 07/06/22 21:15 Total Bilirubin 0.6 mg/dL (0.15-1.2) 07/06/22 21:15 AST 18 U/L (0-32) 07/06/22 21:15 ALT 14 U/L (0-33) 07/06/22 21:15 Alkaline Phosphatase 97 U/L (35-105) 07/06/22 21:15 Total Protein 7.2 g/dL (6.6-8.7) 07/06/22 21:15 Albumin 4.4 g/dL (3.5-5.2) 07/06/22 21:15 Globulin 2.8 g/dL (1.3-4.6) 07/06/22 21:15 Lipase 35 U/L (13-60) 07/06/22 21:15 HCG, Qual Cancelled 07/06/22 21:15 Ser , Semi-Qnt 5.19 mIU/mL 07/06/22 22:33 Urine Color Yellow (Yellow) 07/06/22 20:58 Urine Appearance Hazy (CLEAR) A 07/06/22 20:58 Urine pH 8 (5-7) H 07/06/22 20:58 Ur Specific [place] 1.015 (1.005-1.030) 07/06/22 20:58 Urine Protein 1+ (Negative) H 07/06/22 20:58 Urine Glucose (UA) Norm (Normal) 07/06/22 20:58 Urine Ketones 2+ (Negative) H 07/06/22 20:58 Urine Blood 3+ (Negative) H 07/06/22 20:58 Urine Nitrate Negative (Negative) 07/06/22 20:58 Urine Bilirubin Neg (Negative) 07/06/22 20:58 Prot Sulfosalicylic Acd Negative (Negative) 07/06/22 20:58 Urine Urobilinogen Neg mg/dL (Negative) 07/06/22 20:58 Ur Leukocyte Esterase 2+ (Negative) H 07/06/22 20:58 Urine RBC 15-25 /hpf (0-2) H 07/06/22 20:58 Urine WBC >100 /hpf (0-5) H 07/06/22 20:58 Ur Squamous Epith Cells 10-15 /hpf (0-5) H 07/06/22 20:58 Amorphous Sediment Not Reportable 07/06/22 20:58 Urine Bacteria 1+ /hpf (NONE) H 07/06/22 20:58 Urine Mucus Trace /hpf 07/06/22 20:58 Discharge Plan Discharge Patient Disposition: Home Clinical Impression: Right flank pain, Urinary tract infection Condition: Stable Prescriptions: No Action multivitamin Tablet 1 tab PO DAILY magnesium 250 mg tablet 250 mg PO DAILY metoprolol succinate 25 mg tablet extended release 24 hr 25 mg PO DAILY Rx Instructions: take 1 tablet by mouth daily Discharge Orders: Discharge ED (Routine); Ordered 07/06/22 Ordered By: Darren Cuellar Referrals: Dolly Mendoza FNP [Primary Care Provider] - Patient Instructions: Opioid Safety, Pain Management Activity Restrictions/Additional Instructions: Start taking the cefuroxime you already have tonight. Take 500 mg twice a day for 5 days. Maintain adequate fluid intake. Take the oxycodone you already have as needed for pain. Follow-up with your primary care physician in 3 to 5 days for reevaluation. Return if you develop fever with temperature of 100.4 or more, intractable vomiting or worsening pain. Coding Level of Care Code ED [employer] for [employer]
[2022-07-06 21:34] LABS: Basophils % 0.3 %; Eosinophils # 0.1 10^3/uL (0.0-0.8); Eosinophils % 0.7 %; Hematocrit 43.8 % (37.0-47.0); Hemoglobin 14.2 g/dL (11.5-15.3); Lymphocytes # 0.9 10^3/uL (0.8-4.8); Lymphocytes % 8.5 %; Mean Corpuscular HGB Conc 32.4 g/dL (30.0-36.0); Mean Corpuscular Hemoglobin 27.6 pg (28.0-34.0); Mean Corpuscular Volume 85.2 fl (81-99); Monocytes # 0.6 10^3/uL (0.2-0.9); Neutrophils # 8.73 10^3/uL (1.8-7.7); Neutrophils % 84.2 %; Nucleated Red Blood Cells % 0 %; Platelet Count 221 10^3/cmm (130-400); Red Blood Count 5.14 10^6/uL (4.1-5.3); Red Cell Distribution Width 12.5 % (12.1-15.1); White Blood Count 10.4 10^3/uL (4.0-10.0)
[2022-07-06 21:58] LABS: Alanine Aminotransferase 14 U/L (0-33); Albumin Level 4.4 g/dL (3.5-5.2); Alkaline Phosphatase 97 U/L (35-105); Anion Gap 18.8 (5-19); Aspartate Amino Transferase 18 U/L (0-32); Blood Urea Nitrogen 8 mg/dL (6-20); Calcium 9.7 mg/dL (8.5-10.5); Carbon Dioxide 24 mmol/L (22-29); Chloride 99 mmol/L (98-107); Globulin 2.8 g/dL (1.3-4.6); Glomerular Filtration Rate 88.9 mL/min (90-130); Glucose 115 mg/dL (65-115); Lipase 35 U/L (13-60); Osmolality Calculated 285 mOsm/kg (285-295); Potassium 3.8 mmol/L (3.5-5.1); Sodium 138 mmol/L (136-145); Total Bilirubin 0.6 mg/dL (0.15-1.2); Total Protein 7.2 g/dL (6.6-8.7)
[2022-07-06 22:47] LABS: HCG Quantitative 5.19 mIU/mL
[2022-07-06 22:47] LABS: Blood Urine 3+ (Negative); Glucose Urine UA Norm (Normal); Ketones Urine 2+ (Negative); Protein Urine 1+ (Negative); Specific Gravity, Urine 1.015 (1.005-1.030); Urine Appearance Hazy (CLEAR); Urine Color Yellow (Yellow); pH Urine 8 (5-7)
[2022-07-06 22:48] LABS: Add Urine Microscopic? YES; Bilirubin Urine Neg (Negative); Leukocyte Esterase Urine 2+ (Negative); Nitrate Urine Negative (Negative); Sulfosalicylic Acid Urine Negative (Negative); Urobilinogen Urine Neg (Negative)
[2022-07-06 22:53] LABS: RBC Urine 15-25 /hpf (0-2)
[2022-07-06 22:54] LABS: Add Urine Culture? No; Bacteria Urine 1+ /hpf; Mucus Urine TRACE /hpf; WBC Urine >100 /hpf (0-5)
== END 2022-07-06 23:16 | disposition home or self-care (01) ==
PROVIDERS: Nurse Practitioner Family; Emergency Provider Family Medicine; PCP Nurse Practitioner Family
DX: N39.0 Urinary tract infection, site not specified (principal); Z87.442 Personal history of urinary calculi
CPT/HCPCS: 74176; 80053; 81001; 83690; 84702; 85025; 96374; 96375; 99285; J1885; J2405

== ENCOUNTER 2022-07-29 13:11 | Outpatient (CLI) | payer OTHER, SELFPAY ==
--- NOTE | 2022-07-29 13:59 | XR_ITS ---
WS: [id number] XR KUB [id number] REASON FOR EXAM: stones FINDINGS: Compared to the previous KUB of 06/24/2022, there are still calcifications/calculi congruent with the distal most right ureteral calculi previously demonstrated KUB and CT scan of 07/06/2022. They are in the same position as noted on the previous KUB. No new findings or other interval change. XR/XR KUB [id number] IMPRESSION: Persistent distalmost right ureteral calculi.
== END 2022-07-29 13:12 | disposition home or self-care (01) ==
LOC: RAD 13:13
PROVIDERS: PCP Nurse Practitioner Family; Visit Provider Urology
DX: N20.1 Calculus of ureter (principal); N39.0 Urinary tract infection, site not specified
CPT/HCPCS: 74018; 81003

== ENCOUNTER 2022-08-20 11:17 | Outpatient (CLI) | payer OTHER, SELFPAY ==
--- NOTE | 2022-08-20 11:15 | US_ITS ---
WS: [id number] RENAL ULTRASOUND HISTORY: HYDRONEPHROSIS COMPARISON: CT 07/06/2022 TECHNIQUE: 2-D and color Doppler imaging of the kidney submitted. Right kidney: 10.1 cm x 5.2 cm x 4.8 cm. Cortex: 1.6 cm Normal echogenicity with no hydronephrosis or mass. Left kidney: 10.1 cm x 5.3 cm x 5.5 cm. Cortex: 1.8 cm Normal echogenicity with no hydronephrosis or mass. Aorta: Normal. Urinary Bladder: Minimally distended. US/US renal BI* [id number] IMPRESSION: Normal renal ultrasound. No residual RIGHT hydronephrosis.
== END 2022-08-20 11:18 | disposition home or self-care (01) ==
LOC: RAD 11:20
PROVIDERS: PCP Nurse Practitioner Family; Visit Provider Urology
DX: N13.30 Unspecified hydronephrosis (principal)
CPT/HCPCS: 76770

== ENCOUNTER → 2022-09-15 11:15 | Outpatient (BNVA) | payer OTHER, SELFPAY | PROVIDERS: PCP Nurse Practitioner Family; Visit Provider Internal Medicine | DX: N39.0 Urinary tract infection, site not specified (principal); I10 Essential (primary) hypertension; I73.00 Raynaud's syndrome without gangrene; M35.9 Systemic involvement of connective tissue, unspecified; R20.9 Unspecified disturbances of skin sensation | CPT/HCPCS: 80053; 83516; 84443; 85025; 85651; 86140; 86160; 86162; 86200; 86235; 86255; 86376; 86431; 86704; 86803; 87340 ==

== ENCOUNTER → 2022-10-03 14:29 | Outpatient (BNVA) | payer OTHER, SELFPAY | PROVIDERS: PCP Nurse Practitioner Family; Visit Provider Nurse Practitioner Family | DX: R39.9 Unspecified symptoms and signs involving the genitourinary system (principal); N39.0 Urinary tract infection, site not specified | CPT/HCPCS: 81000 ==

== ENCOUNTER → 2022-10-13 08:34 | Outpatient (BNVA) | payer OTHER, SELFPAY | PROVIDERS: PCP Nurse Practitioner Family; Visit Provider Nurse Practitioner Family | DX: N39.0 Urinary tract infection, site not specified (principal) | CPT/HCPCS: 87086 ==

== ENCOUNTER 2022-11-17 14:01 | Outpatient (CLI) | payer OTHER, SELFPAY ==
--- NOTE | 2022-11-17 14:11 | MM_ITS ---
WS: [id number] BILATERAL 3D TOMOSYNTHESIS DIGITAL SCREENING MAMMOGRAPHY WITH CAD CLINICAL INFORMATION: SCREENING HISTORY: Screening mammogram. No current complaints. COMPARISON: October 25, 2021 TECHNIQUE: Bilateral CC and MLO views. FINDINGS: Scattered fibroglandular densities bilaterally. No suspicious focal mass, asymmetry, calcifications, or architectural distortion. No evidence of malignancy. Biopsy clips RIGHT breast. Vascular calcifica tion. MM/[place] [id number] IMPRESSION: BI-RADS: 2-Benign FOLLOW UP: 1 Year Follow-up Recommend return to annual screening mammography.
== END 2022-11-17 14:02 | disposition home or self-care (01) ==
PROVIDERS: PCP Nurse Practitioner Family; Visit Provider Registered Nurse
DX: Z12.31 Encounter for screening mammogram for malignant neoplasm of breast (principal)
CPT/HCPCS: 77063; 77067

== ENCOUNTER → 2023-02-17 15:53 | Outpatient (BNVA) | payer OTHER, SELFPAY | PROVIDERS: PCP Nurse Practitioner Family; Visit Provider Nurse Practitioner Family | DX: R50.9 Fever, unspecified (principal) | CPT/HCPCS: 87400; 87426 ==

== ENCOUNTER → 2023-02-19 11:59 | Outpatient (BNVA) | payer OTHER, SELFPAY | PROVIDERS: PCP Nurse Practitioner Family; Visit Provider Nurse Practitioner Family | DX: R10.9 Unspecified abdominal pain (principal); N39.0 Urinary tract infection, site not specified | CPT/HCPCS: 81000; 87086 ==

== ENCOUNTER → 2023-02-20 12:08 | Outpatient (BNVA) | payer OTHER, SELFPAY | PROVIDERS: PCP Nurse Practitioner Family; Visit Provider Nurse Practitioner Family | DX: R53.83 Other fatigue (principal); I10 Essential (primary) hypertension; R76.8 Other specified abnormal immunological findings in serum; I73.00 Raynaud's syndrome without gangrene; R50.9 Fever, unspecified | CPT/HCPCS: 80053; 84439; 84443; 84481; 85025 ==

== ENCOUNTER → 2023-03-10 13:37 | Outpatient (BNVA) | payer OTHER, SELFPAY | PROVIDERS: PCP Nurse Practitioner Family; Visit Provider Internal Medicine | DX: R76.8 Other specified abnormal immunological findings in serum (principal); R05.9 Cough, unspecified; I73.00 Raynaud's syndrome without gangrene; D72.819 Decreased white blood cell count, unspecified; Z79.899 Other long term (current) drug therapy | CPT/HCPCS: 36415; 71046; 80053; 81001; 84145; 85025; 85651; 86140 ==

== ENCOUNTER → 2023-03-16 11:22 | Outpatient (BNVA) | payer OTHER, SELFPAY | PROVIDERS: PCP Nurse Practitioner Family; Visit Provider Nurse Practitioner Family | DX: M25.50 Pain in unspecified joint (principal); E55.9 Vitamin D deficiency, unspecified; R53.83 Other fatigue; Z79.899 Other long term (current) drug therapy | CPT/HCPCS: 80053; 82306; 82607; 83735; 84207; 84443; 85025; 85651; 86003; 86008; 86140; 86618; 86666; 86757; 87798 ==

== ENCOUNTER → 2023-07-27 15:58 | Outpatient (BNVA) | payer OTHER, SELFPAY | PROVIDERS: PCP Nurse Practitioner Family; Visit Provider Nurse Practitioner Family | DX: N39.0 Urinary tract infection, site not specified (principal) | CPT/HCPCS: 81000; 87086 ==

== ENCOUNTER → 2023-08-14 11:08 | Outpatient (BNVA) | payer OTHER, SELFPAY | PROVIDERS: PCP Nurse Practitioner Family; Visit Provider Nurse Practitioner Family | DX: J06.9 Acute upper respiratory infection, unspecified (principal); N39.0 Urinary tract infection, site not specified; M34.9 Systemic sclerosis, unspecified | CPT/HCPCS: 81000; 87086 ==

== ENCOUNTER → 2023-08-27 08:45 | Outpatient (BNVA) | payer OTHER, SELFPAY | PROVIDERS: PCP Nurse Practitioner Family; Visit Provider Nurse Practitioner Family | DX: R22.9 Localized swelling, mass and lump, unspecified (principal) | CPT/HCPCS: 85025 ==

== ENCOUNTER → 2023-10-20 13:12 | Outpatient (BNVA) | payer OTHER, SELFPAY | PROVIDERS: PCP Nurse Practitioner Family; Visit Provider Nurse Practitioner Family | DX: N39.0 Urinary tract infection, site not specified (principal) | CPT/HCPCS: 81003; 87086 ==

== ENCOUNTER → 2024-02-03 11:01 | Outpatient (BNVA) | payer OTHER, SELFPAY | PROVIDERS: PCP Nurse Practitioner Family; Visit Provider Nurse Practitioner Family | DX: N39.0 Urinary tract infection, site not specified (principal); S36.39XA Other injury of stomach, initial encounter; X58.XXXA Exposure to other specified factors, initial encounter | CPT/HCPCS: 80053; 81000; 85007; 85027; 87086 ==

== ENCOUNTER → 2024-03-09 14:37 | Outpatient (BNVA) | payer OTHER, SELFPAY | PROVIDERS: PCP Nurse Practitioner Family; Visit Provider Nurse Practitioner Family | DX: N39.0 Urinary tract infection, site not specified (principal); N20.9 Urinary calculus, unspecified; R10.9 Unspecified abdominal pain; F41.9 Anxiety disorder, unspecified | CPT/HCPCS: 81000 ==

== ENCOUNTER 2024-05-04 10:01 | Outpatient (CLI) | payer OTHER, SELFPAY ==
--- NOTE | 2024-05-04 10:00 | MM_ITS ---
WS: [id number] BILATERAL SCREENING DIGITAL TOMOSYNTHESIS MAMMOGRAM WITH CAD HISTORY: SCREENING COMPARISON: 11/17/2022, 10/25/2021 Bilateral CC and MLO views with tomosynthesis and synthetic mammography submitted. Computer aided det ection analyzed. Breast composition: There are scattered areas of fibroglandular density. No suspicious masses, microc alcifications or architectural distortion. 2 biopsy clips in the RIGHT breast. No associated mass or calcifications. There are a few benign calcifications RIGHT breast and vascular calcifications. MM/MM scr BI tomosynthesis [id number] IMPRESSION: BI-RADS: 2 - Benign. FOLLOW UP: 1 Year Follow-up
== END 2024-05-04 10:02 | disposition home or self-care (01) ==
PROVIDERS: PCP Nurse Practitioner Family; Visit Provider Nurse Practitioner Family
DX: Z12.31 Encounter for screening mammogram for malignant neoplasm of breast (principal); R92.323 Mammographic fibroglandular density, bilateral breasts; R92.1 Mammographic calcification found on diagnostic imaging of breast
CPT/HCPCS: 77063; 77067

== ENCOUNTER 2024-05-12 09:11 | Outpatient (CLI) | payer OTHER, SELFPAY ==
[2024-05-12 09:46] LABS: Basophils % 0.8 %; Eosinophils # 0.1 10^3/uL (0.0-0.8); Eosinophils % 3.3 %; Hematocrit 45.1 % (36-47); Lymphocytes # 1.4 10^3/uL (0.8-4.8); Lymphocytes % 38.6 %; Mean Corpuscular HGB Conc 31.7 g/dL (30-55); Mean Corpuscular Hemoglobin 27.6 pg (27-33); Mean Corpuscular Volume 86.9 fl (85-98); Mean Platelet Volume 10.7 fL (7.4-10.4); Monocytes # 0.3 10^3/uL (0.2-0.9); Monocytes % 8.6 %; Neutrophils # 1.74 10^3/uL (1.8-7.7); Neutrophils % 48.4 %; Nucleated Red Blood Cells % 0 %; Platelet Count 262 10^3/cmm (157-399); Red Blood Count 5.19 10^6/uL (3.85-5.65); Red Cell Distribution Width 12.4 % (12.1-15.1)
[2024-05-12 09:47] LABS: Bilirubin Urine Negative (Negative); Blood Urine Negative (Negative); Glucose Urine UA Negative (Normal); Ketones Urine Negative (Negative); Leukocyte Esterase Urine Negative (Negative); Nitrate Urine Negative (Negative); Protein Urine Negative (Negative); Specific Gravity, Urine 1.004 (1.005-1.030); Urine Appearance Clear (CLEAR); Urine Color Yellow (Yellow); Urobilinogen Urine 0.2 mg/dL (Negative); pH Urine 6.5 (5-7)
[2024-05-12 09:52] LABS: Add Urine Microscopic? YES; Bacteria Urine None Seen /hpf; Hyaline Casts Urine 0-4 /lpf; RBC Urine 0-2 /hpf (0-2); Squamous Epithelial Cell Urine 0-5 /hpf (0-5); WBC Urine 0-5 /hpf (0-5)
[2024-05-12 10:05] LABS: Alanine Aminotransferase 22 U/L (0-33); Albumin Level 4.4 g/dL (3.5-5.2); Alkaline Phosphatase 122 U/L (35-105); Anion Gap 15.5 (5-19); Aspartate Amino Transferase 22 U/L (0-32); Blood Urea Nitrogen 11 mg/dL (6-20); Calcium 9.7 mg/dL (8.5-10.5); Carbon Dioxide 27 mmol/L (22-29); Chloride 100 mmol/L (98-107); Complement C3 149 mg/dL (90-180); Creatine Phosphokinase 74 U/L (26-192); Globulin 2.8 g/dL (1.3-4.6); Glomerular Filtration Rate 105.4 mL/min (90-130); Glucose 85 mg/dL (65-115); Osmolality Calculated 287 mOsm/kg (285-295); Potassium 3.5 mmol/L (3.5-5.1); Sodium 139 mmol/L (136-145); Total Bilirubin 0.5 mg/dL (0.15-1.2); Total Protein 7.2 g/dL (6.6-8.7)
[2024-05-12 10:06] LABS: Erythrocyte Sedimentation Rate 5 mm/hr (0-15)
[2024-05-12 10:07] LABS: Urine Creatinine 16 mg/dL (28-217); Urine Protein Random 4 mg/dL
[2024-05-12 10:09] LABS: UPRO/UCREAT Ratio 0.25 mg/mg CR
[2024-05-13 13:19] LABS: Aldolase 2.9 U/L (< OR = 8.1)
[2024-05-16 13:59] LABS: Quantiferon Mitogen 6.69 IU/mL; Quantiferon Nil 0.05 IU/mL; Quantiferon TB Gold NEGATIVE (NEGATIVE)
== END 2024-05-12 09:12 | disposition home or self-care (01) ==
PROVIDERS: PCP Nurse Practitioner Family
DX: I73.00 Raynaud's syndrome without gangrene (principal); M34.9 Systemic sclerosis, unspecified; R76.8 Other specified abnormal immunological findings in serum; Z79.899 Other long term (current) drug therapy
CPT/HCPCS: 36415; 80053; 81001; 82085; 82550; 82570; 84156; 85025; 85651; 86140; 86160; 86480